=== PATIENT | female | born 1995 | race Caucasian/White ===

== ENCOUNTER 2018-04-10 20:05 | Inpatient (IN) ==
[2018-04-10] MEDS ORDERED: *HR* HYDROmorphone (PF) 1 MG/ML SYRINGE IVP ONE ×2 (21:13→23:00)
--- NOTE | 2018-04-11 00:28 | General Surgery Consult Note ---
Date of Encounter: 04/11/18 Time of Encounter: 00:26 Assessment and Plan (1) Abdominal distension Current Visit: Yes Status: Acute 20F with significant dilated loops of small bowel, which look like high grade obstruction; concern for multiple TP vs internal hernia vs appendicitis; evaluation by hospitalist NG tube: ARTHURWS repeat CT in AM serial exams replete lytes possible OR in AM History of Present Illness Consult date: 04/11/18 Reason for consult: other (small bowel obstruction) History of present illness: 23F h/o IVDA, hep C, recent pyelonephritis who presents with 4-5 days of worsening abdominal distension and abdominal pain. Per the patient, the pain is localized to the Right side of abdomen with radiation to her back. She does report associated nausea and vomiting and decreased PO intake. No reports of fevers, chills. of note, she did engage in IVDA ~ [address] scan was obtained which demonstrated dilated loops of bowel consistent with a high grade obstruction. Concern for possible multiple transition points due to internal hernia. (CT scan was reviewed by me in combination with radiology) Past Med Surg Social Fam HX - Past Medical History Medical history: no medical history Psychiatric history: no psych history - Past Surgical History Surgical History: no surgical history - Social History Smoking Status: Current every day smoker Smokeless Tobacco Status: No Alcohol use: occasionally Drug use: cocaine, opiates, methamphetamine Medications and Allergies No Known Home Drugs 04/10/18 [History] 3 Allergy/AdvReac Type Severity Reaction Status Date / Time No Known Allergies Allergy Verified 04/10/18 21:15 Review of Systems All systems PM: 12 point ROS negative besides HPI findings General Surgery Exam Initial Vital Signs Temp Pulse Resp BP Pulse Ox 98.3 F 89 20 130/106 98 04/10/18 20:13 04/10/18 20:13 04/10/18 20:13 04/10/18 20:13 04/10/18 20:13 - General physical appearance no distress - Eyes pinpoint pupil, normal ocular movement - ENT normocephalic - Neck no lymphadectomy - Respiratory normal expansion, normal respiratory effort - Cardiovascular Cardiovascular exam: Present: RRR - Abdomen Abdomen general surgery: Present: soft, tender Abdominal Tenderness: Present: RUQ, RLQ - Integumentary Integumentary general surgery: Present: no abnormal pigmentation - Neurologic Present: CN 2-12 grossly intact - Musculoskeletal Present: normal posture - Psychiatric Psychiatric general surgery: Present: A&Ox3 Exam Initial Vital Signs Temp Pulse Resp BP Pulse Ox 98.3 F 89 20 130/106 98 04/10/18 20:13 04/10/18 20:13 04/10/18 20:13 04/10/18 20:13 04/10/18 20:13 Results - Labs All other labs normal. - Imaging CT scan - abdomen: report reviewed, image reviewed CT scan - pelvis: report reviewed, image reviewed Consult Discharge Plan - Plan Referrals: NONE,PCP [Primary Care Provider] - Jia Chase [Family Provider] -
[2018-04-11] MEDS ORDERED: *HR* Promethazine 25 MG/ML VIAL IVP PRN ×3 (03:06→19:09)
[2018-04-11] MEDS ORDERED: *HR* FentaNYL (PF) 100 MCG/2 ML VIAL IVP ONE ×2 (05:18→10:06)
[2018-04-11] MEDS ORDERED: *HR* FentaNYL (PF) 100 MCG/2 ML VIAL IVP PRN ×3 (05:30→17:35)
[2018-04-11] MEDS ORDERED: Naloxone 0.4 MG/ML INJ IVP PRN ×2 (05:30→19:09)
--- NOTE | 2018-04-11 05:41 | Internal Med History&Physical ---
Date of Encounter: 04/11/18 Time of Encounter: 05:00 Internal Medicine - H&P: HPI Chief complaint: abdominal pain Admitted From: Hospital to Hospital Transfer Plans for Post Hospital Care: Home History of present illness: Ms. Agrawal is a 23 year old female who presents to our ER in transfer from [facility] ER. There was concern that she had an acute surgical abdomen, specifically appendicitis versus small bowel obstruction versus both. [facility] ER contacted our surgeon, Dr. Bowen, who did a staff visit in the ER to see patient. Dr. Bowen assessed the patient and reviewed the CT films from [facility] with radiology. Dr. Bowen contacted me asking me to admit patient to our service with consultation to surgery. He is not convinced patient has appendicitis at this time or that she needs urgent surgery. Nonetheless, surgery will follow closely and determine if and when she needs surgery. Upon my assessment of the patient, she is lying in bed complaining of nausea and abdominal pain. She is crying and moaning in pain. However, it appears that her complaints of pain are out of portion to her exam. She does have an NG in place that is hooked up to low intermittent wall suction. I reviewed the note from Dr. Bowen and specifically questioned her about her history of drug use. She has known hepatitis C and history of IV drug use. She reports to me that she has not used drugs in several years. However, according to Dr. oBwen' note, she used IV drugs roughly 1 week ago. She is a poor historian and not very cooperative with history and/or exam. Other than complaints of abdominal pain and requests for pain medication, I could not elicit any further specific information from patient. Past Med Surg Social Fam HX - Past Medical History Attestation: Yes The following information was validated with the patient. Source: patient, other (Dr. Bowen' consultation) Medical history: no medical history, hepatitis (Hep C) Additional medical history: IVDA Psychiatric history: no psych history - Past Surgical History Surgical History: no surgical history - Social History Smoking Status: Current every day smoker Smokeless Tobacco Status: No Alcohol use: occasionally Drug use: cocaine, opiates, methamphetamine, IV Drug Use Activity Level: Independent ambulation Recent Out of Country Travel Within the Last 8 Weeks: No - Family History Mother History Unknown: Yes Father History Unknown: Yes Internal Medicine - H&P: Meds No Known Home Drugs 04/10/18 [History] 3 Allergy/AdvReac Type Severity Reaction Status Date / Time No Known Allergies Allergy Verified 04/10/18 21:15 ROS unobtainable: other (patient not cooperative with history and much of exam) - Constitutional Vitals: Temp Pulse Resp BP Pulse Ox 98.1 F 81 15 120/84 96 04/11/18 05:23 04/11/18 05:23 04/11/18 05:23 04/11/18 05:23 04/11/18 05:23 General appearance: Present: mild distress, A&O X 3. Absent: cooperative, pleasant, answers questions appropriately (non-cooperative) Exam: see below - Head Head exam: Present: atraumatic, normal inspection - Eye Eye exam: Present: EOMI, PERRL. Absent: scleral icterus Pupils: Present: normal accommodation - ENT ENT exam: Present: mucous membranes dry, normal exam, normal oropharynx Additional comments: NGT in place to LIWS - Neck Neck exam general surgery: Present: supple. Absent: tenderness, nuchal rigidity , thyromegaly - Respiratory Respiratory exam: Present: CTAB. Absent: chest wall tenderness, rales, rhonchi , wheezes - Cardiovascular Cardiovascular exam: Present: RRR, +S1, +S2. Absent: systolic murmur - GI/Abdominal GI/Abdominal exam: Present: guarding, hypoactive bowel sounds, tenderness ( diffuse). Absent: mass, rebound - Extremities Exam Extremities exam: Present: radial pulses palpable and symmetrical. Absent: calf tenderness, pedal edema, tenderness, warm - Neurological Exam Neurological exam: Present: alert, oriented X3, no focal deficits - Psychiatric Psychiatric exam: Present: agitated, anxious - Skin Skin exam: Present: dry, intact, warm - Assessment and plan (1) Abdominal distension Current Visit: Yes Status: Acute Assessment and plan: 1. I am unable to find transfer records from [facility]. 2. Much of history was obtained from my discussion with Dr. Bowen as patient was not very cooperative with history. 3. Will order CBC, CMP, blood cultures, U/A CL&S, test, and urine tox screen. 3. Will treat with IV Zosyn and Flagyl to cover GI castillo. 5. Surgery consultation with Dr. Bowen. Further/repeat imaging per Dr. Bowen. 6. NG to LIWS for concerns of SBO. 7. IVF hydration. 8. Will provide IV pain and nausea control. (2) IVDU (intravenous drug user) Current Visit: Yes Status: Chronic Assessment and plan: 1. I worry about possible bowel ischemia from cocaine use. 2. Will order urine drug screen. 3. IVF, antibiotics, and cautious use of above pain/nausea meds. (3) DVT prophylaxis Current Visit: Yes Status: Acute Assessment and plan: 1. EPCD'S.
[2018-04-11] MEDS: 0.9 % Sodium Chloride 1,000 ML IVC SCH ×2 (05:50→13:30)
[2018-04-11] MEDS: Piperacillin/Tazobactam 3.375 GM in 0.9 % Sodium Chloride Mini Bag 100 ML IVPB SCH ×2 (05:51→14:20)
[2018-04-11] MEDS: *HR* Promethazine 25 MG/ML VIAL IVP PRN ×2 (06:00→11:55)
[2018-04-11 06:14] LABS: Basophils % 0.3 %; Eosinophils % 0.1 %; Hematocrit 50.6 % (35.3-44.9); Hemoglobin 16.9 g/dL (11.5-15.4); Immature Granulocytes % 0.5 % (0-4); Lymphocytes # 2.3 K/mcL (0.6-4.6); Lymphocytes % 14.8 %; Mean Corpuscular HGB Conc 33.4 g/dL (31.6-35.5); Mean Corpuscular Hemoglobin 31.5 pg (28.0-33.3); Mean Corpuscular Volume 94.2 fL (83.0-100.0); Mean Platelet Volume 8.3 fL (9.4-12.4); Monocytes # 0.8 K/mcL (0.0-1.3); Monocytes % 5.3 %; Neutrophils # 12.4 K/mcL (1.6-8.9); Platelet Count 597 K/mcL (140-400); Red Blood Count 5.37 M/mcL (3.82-4.97); Red Cell Distribution Width 13.5 % (11.5-14.5)
[2018-04-11 06:31] LABS: Activated Partial Thrombo Time 33.6 Seconds (26.0-36.0)
[2018-04-11 06:33] LABS: Alanine Aminotransferase 10 Units/L (7-52); Albumin 4.5 g/dL (3.5-5.7); Albumin/Globulin Ratio 1.2 (1.1-2.2); Alkaline Phosphatase 81 Units/L (34-104); Aspartate Amino Transferase 12 Units/L (13-39); BUN/Creatinine Ratio 24 (6-26); Bilirubin,Total 0.4 mg/dL (0.3-1.0); Blood Urea Nitrogen 17 mg/dL (6-20); Calcium 9.9 mg/dL (8.6-10.3); Carbon Dioxide 24 mEq/L (23-29); Chloride 103 mEq/L (98-107); Globulin 3.9 g/dL (2.4-3.5); Glucose 143 mg/dL (70-105); Magnesium 2.3 mg/dL (1.6-2.6); Osmolality,Calculated 284 (280-300); Potassium 4.4 mEq/L (3.5-5.1); Sodium 135 mEq/L (136-145); Total Protein 8.4 g/dL (6.4-8.9); eGFR For Non-African Americans > 60 (> 60)
[2018-04-11] MEDS: MetroNIDAZOLE 500 MG/100 ML 500 MG/100 ML BAG IVPB SCH ×2 (08:16→16:47)
[2018-04-11] MEDS ORDERED: Isovue-370 500 ML INFUS..BTL IV ONE (08:33)
[2018-04-11 10:07] LABS: Bilirubin,Urine Negative (Negative); Blood,Urine Negative (Negative); Clarity,Urine Clear (Clear); Color,Urine Yellow (Yellow); Glucose,Urine (UA) Normal (Normal); Ketones,Urine Negative (Negative); Leukocyte Esterase,Urine Negative (Negative); Nitrite,Urine Negative (Negative); PH,Urine 5.5 pH Units (5.0-8.0); Protein,Urine Trace mg/dL (Neg-Trace); Specific Gravity,Urine > 1.030 (1.010-1.025); Urobilinogen,Urine Normal (Normal)
[2018-04-11 10:10] LABS: Bacteria,Urine Few per hpf (None-Few); Hyaline Casts,Urine None Seen per lpf (None-Few); RBC,Urine 0-3 per hpf (0-3); Squamous Epithelial Cell,Urine Many per lpf (None-Few)
[2018-04-11 10:27] LABS: Amphetamine Screen,Urine Negative ng/mL (Cutoff=1000); Barbiturate Screen,Urine Negative ng/mL (Cutoff=200); Benzodiazepines Screen,Urine Negative ng/mL (Cutoff=200); Cannabinoid Screen,Urine Positive ng/mL (Cutoff = 50); Cocaine Screen,Urine Negative ng/mL (Cutoff= 300); Opiate Screen,Urine Positive ng/mL (Cutoff=300); Phencyclidine Screen,Urine Negative ng/mL (Cutoff=25)
--- NOTE | 2018-04-11 11:16 | Internal Med Progress Note ---
Hospitalist Progress Note - Encounter Date of Encounter: 04/11/18 Time of Encounter: 11:00 - Subjective Interval History: Patient with moderate distress, complaining of abdominal pain. Agrees to go to CT scan abdomen, initially she refused. - Exam Vitals: Temp Pulse Resp BP Pulse Ox 98.2 F 76 14 125/82 98 04/11/18 10:49 04/11/18 10:49 04/11/18 10:49 04/11/18 10:49 04/11/18 10:49 Exam: Gen: moderate distress, diaphoretic CVS: RRR Lungs: CTAB Abd: soft, mild distension, normal bowel sounds, no rigidity Ext: no edema. - Assessment and Plan (1) Abdominal distension Current Visit: Yes Status: Acute Assessment and Plan: Agrees to undergoe CT abdomen/pelvis, will follow-up Surgery following, recommendations appreciated. Continue Zosyn/Flagyl NG tube in (2) IVDU (intravenous drug user) Current Visit: Yes Status: Chronic (3) DVT prophylaxis Current Visit: Yes Status: Acute Assessment and Plan: EPCDs - Time Spent with Patient Total time spent is greater than 50% in coordination of care (as documented) at patient's floor/unit and/or counseling patient: Internal Medicine: Result - Labs CBC & Chem 7: 04/11/18 06:00 04/11/18 06:00 Labs: Short CBC 04/11/18 Range/Units 06:00 WBC 15.7 H (4.3-11.1) K/mcL Hgb 16.9 H (11.5-15.4) g/dL Hct 50.6 H (35.3-44.9) % Plt Count 597 H (140-400) K/mcL Neutrophils # 12.4 H (1.6-8.9) K/mcL BMP 04/11/18 06:00 Sodium 135 L Potassium 4.4 Chloride 103 Carbon Dioxide 24 BUN 17 Creatinine 0.71 Glucose 143 H Calcium 9.9 Liver Function 04/11/18 Range/Units 06:00 Total Bilirubin 0.4 (0.3-1.0) mg/dL AST 12 L (13-39) Units/L ALT 10 (7-52) Units/L Alkaline Phosphatase 81 (34-104) Units/L Albumin 4.5 (3.5-5.7) g/dL Urine 04/11/18 Range/Units 09:53 Urine Color Yellow (Yellow) Urine Clarity Clear (Clear) Urine pH 5.5 (5.0-8.0) pH Units Ur Specific [place] > 1.030 H (1.010-1.025) Urine Protein Trace (Neg-Trace) mg/dL Urine Glucose (UA) Normal (Normal) mg/dL - ABG Interpretation ABG results: PT/INR, D-dimer PT 11.0 Seconds (9.4-12.1) 04/11/18 06:00 Consult Discharge Plan - Plan Referrals: NONE,PCP [Primary Care Provider] - Jia Chase [Family Provider] -
[2018-04-11] MEDS ORDERED: Chloraseptic Spray 177 ML BOTTLE MM PRN ×2 (13:16→19:09)
--- NOTE | 2018-04-11 13:24 | Event Note ---
Date of Encounter: 04/11/18 Time of Encounter: 13:15 CT scan of the abdomen/pelvis reviewed with Dr. Bowen and and decision has been made to proceed to the operating room for an exploratory laparotomy. The risks, benefits, alternatives and expected outcomes have been reviewed with the patient and her sister. They are in agreement to proceed to the operating room with Dr. Bowen.
[2018-04-11] MEDS ORDERED: Ondansetron 4 MG/2 ML VIAL IVP PRN ×2 (14:29→19:09)
[2018-04-11] MEDS ORDERED: *HR* OxyCODONE Oral Soln 5 MG/5 ML UD.LIQ PO ONE (14:54)
[2018-04-11] MEDS ORDERED: *HR* FentaNYL (PF) 100 MCG/2 ML VIAL ONE ×3 (16:12→17:33)
[2018-04-11] MEDS ORDERED: *HR* Midazolam HCl 2 MG/2 ML VIAL ONE (16:12)
[2018-04-11] MEDS ORDERED: *HR* Propofol 200 MG/20 ML VIAL IVP ONE (16:12)
--- NOTE | 2018-04-11 16:12 | Anesthesia Evaluation PreOp ---
Date of Encounter: 04/11/18 Time of Encounter: 16:10 - Past History Planned Operation: EXP LAPAROTOMY Cardiac History: Denies any Significant Hx Pulmonary History: Smoker Other Medical History: Hepatic (HEP C), Other (POLY-DRUG ABUSE, HIGH GRADE SBO) Anesthesia History: No Prior Anesthetic Complications, Past Anesthesia Alcohol Use: occasionally Drug use: cocaine, opiates, methamphetamine, IV Drug Use Medications and Allergies No Known Home Drugs 04/10/18 [History] 3 Allergy/AdvReac Type Severity Reaction Status Date / Time No Known Allergies Allergy Verified 04/10/18 21:15 - Meds/Allergy Pre-op Review Medications Reviewed: Yes Allergies Reviewed: Yes Beta Blockers on Current Med List: No Anesthesia Results - Labs 04/11/18 06:00 04/11/18 06:00 Laboratory Last Values WBC 15.7 K/mcL (4.3-11.1) H 04/11/18 06:00 RBC 5.37 M/mcL (3.82-4.97) H 04/11/18 06:00 Hgb 16.9 g/dL (11.5-15.4) H 04/11/18 06:00 Hct 50.6 % (35.3-44.9) H 04/11/18 06:00 MCV 94.2 fL (83.0-100.0) 04/11/18 06:00 MCH 31.5 pg (28.0-33.3) 04/11/18 06:00 MCHC 33.4 g/dL (31.6-35.5) 04/11/18 06:00 RDW 13.5 % (11.5-14.5) 04/11/18 06:00 Plt Count 597 K/mcL (140-400) H 04/11/18 06:00 MPV 8.3 fL (9.4-12.4) L 04/11/18 06:00 Immature Gran % 0.5 % (0-4) 04/11/18 06:00 Seg Neutrophils % 79.0 % 04/11/18 06:00 Lymphocytes % 14.8 % 04/11/18 06:00 Monocytes % 5.3 % 04/11/18 06:00 Eosinophils % 0.1 % 04/11/18 06:00 Basophils % 0.3 % 04/11/18 06:00 Neutrophils # 12.4 K/mcL (1.6-8.9) H 04/11/18 06:00 Lymphocytes # 2.3 K/mcL (0.6-4.6) 04/11/18 06:00 Monocytes # 0.8 K/mcL (0.0-1.3) 04/11/18 06:00 Eosinophils # 0.0 K/mcL (0.0-0.6) 04/11/18 06:00 Basophils # 0.0 K/mcL (0.0-0.2) 04/11/18 06:00 PT 11.0 Seconds (9.4-12.1) 04/11/18 06:00 INR 1.0 04/11/18 06:00 APTT 33.6 Seconds (26.0-36.0) 04/11/18 06:00 Sodium 135 mEq/L (136-145) L 04/11/18 06:00 Potassium 4.4 mEq/L (3.5-5.1) 04/11/18 06:00 Chloride 103 mEq/L (98-107) 04/11/18 06:00 Carbon Dioxide 24 mEq/L (23-29) 04/11/18 06:00 BUN 17 mg/dL (6-20) 04/11/18 06:00 Creatinine 0.71 mg/dL (0.60-1.20) 04/11/18 06:00 Est GFR ( Amer) > 60 (> 60) 04/11/18 06:00 Est GFR (Non-Af Amer) > 60 (> 60) 04/11/18 06:00 BUN/Creatinine Ratio 24 (6-26) 04/11/18 06:00 Glucose 143 mg/dL (70-105) H 04/11/18 06:00 POC Glucose 132 mg/dL (70-99) H 04/11/18 05:19 Calculated Osmolality 284 (280-300) 04/11/18 06:00 Calcium 9.9 mg/dL (8.6-10.3) 04/11/18 06:00 Magnesium 2.3 mg/dL (1.6-2.6) 04/11/18 06:00 Total Bilirubin 0.4 mg/dL (0.3-1.0) 04/11/18 06:00 AST 12 Units/L (13-39) L 04/11/18 06:00 ALT 10 Units/L (7-52) 04/11/18 06:00 Alkaline Phosphatase 81 Units/L (34-104) 04/11/18 06:00 Serum Total Protein 8.4 g/dL (6.4-8.9) 04/11/18 06:00 Albumin 4.5 g/dL (3.5-5.7) 04/11/18 06:00 Globulin 3.9 g/dL (2.4-3.5) H 04/11/18 06:00 Albumin/Globulin Ratio 1.2 (1.1-2.2) 04/11/18 06:00 Serum , Qual Negative (Negative) 04/11/18 06:00 Urine Color Yellow (Yellow) 04/11/18 09:53 Urine Clarity Clear (Clear) 04/11/18 09:53 Urine pH 5.5 pH Units (5.0-8.0) 04/11/18 09:53 Ur Specific [place] > 1.030 (1.010-1.025) H 04/11/18 09:53 Urine Protein Trace mg/dL (Neg-Trace) 04/11/18 09:53 Urine Glucose (UA) Normal mg/dL (Normal) 04/11/18 09:53 Urine Ketones Negative mg/dL (Negative) 04/11/18 09:53 Urine Blood Negative (Negative) 04/11/18 09:53 Urine Nitrite Negative (Negative) 04/11/18 09:53 Urine Bilirubin Negative (Negative) 04/11/18 09:53 Urine Urobilinogen Normal mg/dL (Normal) 04/11/18 09:53 Ur Leukocyte Esterase Negative (Negative) 04/11/18 09:53 Urine Microscopic RBC 0-3 per hpf (0-3) 04/11/18 09:53 Urine Microscopic WBC 3-5 per hpf (0-3) H 04/11/18 09:53 Ur Squamous Epith Cells Many per lpf (None-Few) H 04/11/18 09:53 Urine Bacteria Few per hpf (None-Few) 04/11/18 09:53 Hyaline Casts None Seen per lpf (None-Few) 04/11/18 09:53 Urine Opiates Screen Positive ng/mL (Meuzob=920) H 04/11/18 09:53 Ur Barbiturates Screen Negative ng/mL (Umnkhc=717) 04/11/18 09:53 Ur Phencyclidine Scrn Negative ng/mL (Cutoff=25) 04/11/18 09:53 Ur Amphetamines Screen Negative ng/mL (Toragl=8575) 04/11/18 09:53 U Benzodiazepines Scrn Negative ng/mL (Saqdhc=540) 04/11/18 09:53 Urine Cocaine Screen Negative ng/mL (Cutoff= 300) 04/11/18 09:53 U Marijuana (THC) Screen Positive ng/mL (Cutoff = 50) H 04/11/18 09:53 Ur Drug Screen Interp See Below 04/11/18 09:53 Anesthesia Exam Vital Signs/O2 Sat/Glucose, Most Recent Temp Pulse Resp BP Pulse Ox 98.4 F 76 14 132/95 100 04/11/18 15:11 04/11/18 15:11 04/11/18 15:11 04/11/18 15:11 04/11/18 15:11 Blood Glucose* 119 Height: 1.57 M Weight: 58 KG NPO (# of Hours): 8 - HEENT Pupil (Motor): Pupils equal Mallampati: I Teeth: Normal Oral Opening: Greater than 3 - Cardiac Rhythm: Regular - Pulmonary Breath Sounds: bilateral Clear Respiratory Effort: Symmetrical - Additional Findings NGT in place Anesthesia Assess/Plan ASA Score: 4, E Modified Didier Scale for Level of Consciousness: Anixous, agitated or restless Anesthetic Plan: General Monitoring Plan: Standard Monitors, CVC (possible) Recovery Plan: PACU Anes Supervising Prov Stmt: Patient informed and consented. Risks, benefits, and alternatives discussed. Patient wishes to proceed.
[2018-04-11] MEDS ORDERED: *HR* Rocuronium Bromide 50 MG/5 ML VIAL ONE (16:14)
[2018-04-11] MEDS ORDERED: Ondansetron 4 MG/2 ML VIAL ONE (17:56)
[2018-04-11] MEDS ORDERED: Dexamethasone 4 MG/ML VIAL ONE (17:56)
[2018-04-11] MEDS ORDERED: Lidocaine -MPF 2% 5 ML VIAL ONE (18:07)
[2018-04-11] MEDS ORDERED: *HR* HYDROmorphone (PF) 1 MG/ML SYRINGE IVP PRN (18:08)
[2018-04-11] MEDS ORDERED: Bupivacaine/Clonidine Syringe 1 EACH SYRINGE ONE (18:08)
[2018-04-11] MEDS ORDERED: *HR* HYDROmorphone (PF) 1 MG/ML SYRINGE ONE (18:16)
--- NOTE | 2018-04-11 18:24 | Operative Note ---
Date of procedure: 04/11/18 Pre-op diagnosis: small bowel obstruction Post-op diagnosis: same Procedure: exploratory laparotomy lysis of adhesions appendectomy Implants: none Complications: none Anesthesia: HERBERT Surgeon: Christopher Bowen Was there an mechanic's assistant present: No Dba Other: Natali Law Estimated blood loss (cc): 25 Specimen: small bowel adhesive tissue, appendectomy Disposition: PACU Procedure in Detail: Patient was brought into the operating room suite. Placed in the supine position. Mechanical DVT prophylaxis was placed. The patient underwent smooth induction of anesthesia. Preoperative antibiotics were given. The patient was prepped and draped in the usual fashion. A time out was held identifying correct patient, pathology, procedure, and physician. I started by creating a midline incision. I dissected through subcutaneous tissue down to the fascia using electrocautery. I used the metzenbaum scissors to enter into the peritoneum. Upon entry I was able to suction serous fluid from the abdominal cavity. I then started from the ligament of treitz and ran the entirety of the small bowel and large bowel. Throughout the entirety of the small bowel there were soft flimsy adhesions causing multiple transition points either between loops of bowel or between the mesentery and the small bowel. I used both blunt dissection as well as sharp dissection with the metzenbaum scissors and electrocautery. I ran the bowel a total of three times to ensure that I lysed all adhesions. I then performed an appendectomy. I created a mesenteric window and inserted the stapler to come across the base of the appendix. i then used the vascular load stapler to come across the mesoappendix. There was a small bleeding vessel which was controlled with electrocautery. I then put all the bowel back into the abdomen. I then closed the fascia with a looped PDS suture in a running fashion. I used the 3-0 vicryl suture for the deep dermal layer and staplers for the skin. The patient tolerated the procedure well and was escorted to PACU in stable condition.
--- NOTE | 2018-04-11 18:34 | Anesthesia Procedures ---
Date of Encounter: 04/11/18 Time of Encounter: 18:32 Procedures: Anesthesia - Nerve Block Procedure Date: 04/11/18 Pre-op Diagnosis: SBO Surgical Procedure: EXP LAP, LYSIS ADHESIONS Checklist: Correct Patient Identifier, Correct procedure, History checked Monitor Applied: EKG, BP, Pulse Oximetry Supplemental Oxygen via Nasal Cannula (L/min): 3 Indication: Post Op Analgesia Block Type: Other (BILATERAL TAP) Ultrasound used: Yes Anatomy identified: Yes Visual spread of Local: Yes Smooth Injection of Local: Yes Prep: Chlorhexadine Needle: 22 x 50 mm Stimuplex Local: 0.25% Bupivicaine w/Clonidine 20 mcg/cc (45 ML ) Complications: None/effective block Anes Supervising Prov Stmt: PROCEDURE PERFORMED IN PACU ASEPTIC TECH INCR ASP AND INJ
--- NOTE | 2018-04-11 18:35 | Anesthesia Evaluation Post Op ---
Date of Encounter: 04/11/18 Time of Encounter: 18:45 - Discharge PostOp Status: Transfer Patient to floor (Patient's vital signs have been reviewed. Patient is stable postoperatively and has adequately recovered from anesthesia. Patient is determined to have stable airway patency and respiratory function including respiratory rate and oxygen saturation. Patient has a stable heart rate, blood pressure and adequate hydration. Patients mental status is acceptable. Patients temperature is appropriate. Pain and nausea are adequately controlled.)
[2018-04-11] MEDS ORDERED: 0.9 % Sodium Chloride 1,000 ML IVC SCH (19:09)
[2018-04-11] MEDS: *HR* HYDROmorphone 20 MG/20 ML PCA IVC PRN (20:36)
[2018-04-11] MEDS: *HR* Heparin 5,000 UNIT/ML VIAL SQ SCH (21:31)
[2018-04-12] MEDS ORDERED: 0.9 % Sodium Chloride 1,000 ML IVC SCH (02:15)
[2018-04-12 04:10] LABS: Basophils % 0.1 %; Hematocrit 42.7 % (35.3-44.9); Immature Granulocytes % 0.3 % (0-4); Lymphocytes # 1.5 K/mcL (0.6-4.6); Lymphocytes % 12.5 %; Mean Corpuscular Hemoglobin 32.5 pg (28.0-33.3); Mean Corpuscular Volume 95.7 fL (83.0-100.0); Mean Platelet Volume 8.4 fL (9.4-12.4); Monocytes % 8.1 %; Neutrophils # 9.4 K/mcL (1.6-8.9); Platelet Count 510 K/mcL (140-400); Red Blood Count 4.46 M/mcL (3.82-4.97); Red Cell Distribution Width 13.2 % (11.5-14.5)
[2018-04-12 04:12] LABS: Hemoglobin 14.5 g/dL (11.5-15.4)
[2018-04-12 04:26] LABS: BUN/Creatinine Ratio 19 (6-26); Blood Urea Nitrogen 13 mg/dL (6-20); Calcium 8.5 mg/dL (8.6-10.3); Carbon Dioxide 25 mEq/L (23-29); Chloride 105 mEq/L (98-107); Glucose 141 mg/dL (70-105); Osmolality,Calculated 284 (280-300); Potassium 4.4 mEq/L (3.5-5.1); Sodium 136 mEq/L (136-145); eGFR For Non-African Americans > 60 (> 60)
[2018-04-12] MEDS: *HR* Heparin 5,000 UNIT/ML VIAL SQ SCH ×3 (05:28→20:39)
--- NOTE | 2018-04-12 11:06 | Internal Med Progress Note ---
<Syd Rivera R - Last Filed: 04/12/18 12:55> Hospitalist Progress Note - Encounter Date of Encounter: 04/12/18 Time of Encounter: 11:04 - Subjective Interval History: Patient in moderate distress. Still having some abdominal pain, but it is now different than before surgery yesterday. Previously she would get very sharp intermittent pains, but now says it is more diffuse and not as severe. Still reporting some nausea, but denies any vomiting with the NG tube in place. No flatus or BM yet. Denies other symptoms. Denies fevers, chills, chest pain, dyspnea, or dysuria. - Exam Vitals: Temp Pulse Resp BP Pulse Ox 97.4 F L 89 14 125/62 98 04/12/18 06:52 04/12/18 06:52 04/12/18 06:52 04/12/18 06:52 04/12/18 08:37 Exam: GEN: Moderate distress, A&O3 HEAD: Atraumatic, normocephalic EYES: Pupils symmetric, sclera white, conjunctiva pink HEART: RRR, normal S1 and S2, no murmurs LUNGS: Clear to auscultation bilaterally, no wheezes, rhonchi, or crackles ABD: Soft, diffuse tenderness, non-distended, bowel sounds present, bandage is clean/dry/intact EXT: No edema noted, pulses 2/4 NEURO: No focal deficits, cooperative with exam - Assessment and Plan (1) Small bowel obstruction Current Visit: Yes Status: Acute Assessment and Plan: POD #1 s/p ex lap with LINNEA and appendectomy CT showed dilated bowel loops Patient afebrile. Leukocytosis is decreasing BCx NGTD Surgery following, appreciate recommendations - antibiotics were discontinued per surgery - NG tube: 250 ml out today - pt continues to report nausea Dilaudid LIME MIXER TENDER - will continue for today and attempt to deescalate her pain regimen tomorrow (2) IVDU (intravenous drug user) Current Visit: Yes Status: Chronic (3) DVT prophylaxis Current Visit: Yes Status: Acute Assessment and Plan: EPCDs - Summary of Assessment and Plan Summary of Assessment and Plan: Continue pain control and reevaluate bowel function, NG tube, and symptoms daily - Time Spent with Patient Total time spent is greater than 50% in coordination of care (as documented) at patient's floor/unit and/or counseling patient: Internal Medicine: Result - Labs CBC & Chem 7: 04/12/18 03:48 04/12/18 03:48 Labs: Short CBC 04/12/18 Range/Units 03:48 WBC 11.9 H (4.3-11.1) K/mcL Hgb 14.5 D (11.5-15.4) g/dL Hct 42.7 (35.3-44.9) % Plt Count 510 H (140-400) K/mcL Neutrophils # 9.4 H (1.6-8.9) K/mcL BMP 04/12/18 03:48 Sodium 136 Potassium 4.4 Chloride 105 Carbon Dioxide 25 BUN 13 Creatinine 0.70 Glucose 141 H Calcium 8.5 L - ABG Interpretation ABG results: PT/INR, D-dimer PT 11.0 Seconds (9.4-12.1) 04/11/18 06:00 - Impressions Impressions Abdomen/Pelvis CT 04/11/18 11:00 IMPRESSION: 1. Small-bowel obstruction with transition point in the mid abdomen. Some oral contrast is seen distal to the transition point. 2. Ascites. D/ / Josh Carr MD / Josh Carr MD Interpreting Provider: Josh Carr MD - VTE Documentation of Mechanical Device: Intermittent pneumatic compression device Consult Discharge Plan - Plan Referrals: NONE,PCP [Primary Care Provider] - Jia Chase [Family Provider] - <Chelita Russell - Last Filed: 04/12/18 14:47> Hospitalist Progress Note - Encounter Date of Encounter: 04/12/18 - Exam Vitals: Temp Pulse Resp BP Pulse Ox 98.5 F 91 18 114/74 95 04/12/18 11:45 04/12/18 11:45 04/12/18 11:45 04/12/18 11:45 04/12/18 11:45 - Assessment and Plan (1) Abdominal distension Current Visit: Yes Status: Acute (2) IVDU (intravenous drug user) Current Visit: Yes Status: Chronic (3) DVT prophylaxis Current Visit: Yes Status: Acute - Time Spent with Patient Total time spent is greater than 50% in coordination of care (as documented) at patient's floor/unit and/or counseling patient: Internal Medicine: Result - Labs CBC & Chem 7: 04/12/18 03:48 04/12/18 03:48 Labs: Short CBC 04/12/18 Range/Units 03:48 WBC 11.9 H (4.3-11.1) K/mcL Hgb 14.5 D (11.5-15.4) g/dL Hct 42.7 (35.3-44.9) % Plt Count 510 H (140-400) K/mcL Neutrophils # 9.4 H (1.6-8.9) K/mcL BMP 04/12/18 03:48 Sodium 136 Potassium 4.4 Chloride 105 Carbon Dioxide 25 BUN 13 Creatinine 0.70 Glucose 141 H Calcium 8.5 L - ABG Interpretation ABG results: PT/INR, D-dimer PT 11.0 Seconds (9.4-12.1) 04/11/18 06:00 - Attending Attestation I examined this patient and my medical decision-making was reviewed with the Resident Physician Dr. Rivera. I agree with the documented findings, disposition and treatment plan as described except to the extent set forth below. Ms. Agrawal is a 23 year old female who presents to our ER in transfer from [facility] ER. There was concern that she had an acute surgical abdomen, specifically appendicitis versus small bowel obstruction versus both. Pt was admitted in the hospital and started on empirical abx, had exploratory laparotomy, lysis of adhesions ,appendectomy on 04/11/18. No flatus yet. NG tube + Gen: A, A< O x 3 Chest: CTA Abd: Soft, moderate tenderness @ surgical incision area, BS+ hypoactive a/p 1. Acute appendicitis s/p exploratory laparotomy, lysis of adhesions and appendectomy POD #1 d/c Dilaudid LIME MIXER TENDER cont IV fentanyl PRN cont NG tube suction Surgery on board 2. h/o drug abuse no signs of withdrawal cont close monitoring Ativan PRN Since pt need to stay in the hospital more than 2 nights and with her complex medical problem, requiring IV pain medication will switch to full admission today. I did reviewed Dr. Davis H & P including HPI, PMH, PSH, FH,SH and ROS no changes noticed
--- NOTE | 2018-04-12 14:20 | General Surgery Progress Note ---
Date of Encounter: 04/12/18 Time of Encounter: 14:17 - Assessment and Plan (1) Small bowel obstruction Current Visit: Yes Status: Acute Cont NG/iv fluids for now. Pt will need to ambulate. Subjective Patient reports: pain is less Objective Vital Signs - Last 8 Hours Temp Pulse Resp BP Pulse Ox 04/12/18 11:45 98.5 F 91 18 114/74 95 04/12/18 08:37 98 04/12/18 06:52 97.4 F L 89 14 125/62 98 Intake and Output 04/11/18 04/12/18 04/12/18 23:59 07:59 15:59 Intake Total 100 / 100 1000 / 1000 520 / 520 Output Total 175 / 175 200 / 200 0 / 0 Balance -75 / -75 800 / 800 520 / 520 Intake: IV Fluids 100 / 100 1000 / 1000 520 / 520 0.9 % Sodium Chloride 1,000 ML 1000 / 1000 520 / 520 @ 100 mls/hr IVC .Q10H DEE Rx#: [id number] Zosyn 3.375 GM In 0.9 % Sodium 100 / 100 Chloride (Mini-Bag +) 100 ML @ 25 mls/hr IVPB Q8H DEE Rx#: [id number] Oral 0 / 0 0 / 0 0 / 0 Output: Urine 150 / 150 200 / 200 Gastric Tube Lavage Amount 0 / 0 0 / 0 Right Nare 0 / 0 0 / 0 Estimated Blood Loss 25 / 25 Gastric Drainage 0 / 0 0 / 0 Right Nare 0 / 0 0 / 0 Other: Meal NPO DINNER NPO Lunch Weight 62.7 kg Blood Glucose* 115 96 Patient Weight 04/12/18 23:59 Weight 62.7 kg - General physical appearance well nourished - Eyes PERRL - Neck Neck exam: trachea midline - Respiratory normal expansion - Cardiovascular Cardiovascular exam: Present: RRR - Abdomen Abdomen: Present: soft, tender - Incision Incision: Present: clean and dry - Integumentary no abnormal pigmentation - Neurologic CN 2-12 grossly intact - Psychiatric speech is normal - Labs 04/12/18 03:48 04/12/18 03:48 Diabetes panel 04/12/18 Range/Units 03:48 Sodium 136 (136-145) mEq/L Potassium 4.4 (3.5-5.1) mEq/L Chloride 105 (98-107) mEq/L Carbon Dioxide 25 (23-29) mEq/L BUN 13 (6-20) mg/dL Creatinine 0.70 (0.60-1.20) mg/dL Glucose 141 H (70-105) mg/dL Calcium 8.5 L (8.6-10.3) mg/dL Calcium panel 04/12/18 Range/Units 03:48 Calcium 8.5 L (8.6-10.3) mg/dL Pituitary panel 04/12/18 Range/Units 03:48 Sodium 136 (136-145) mEq/L Potassium 4.4 (3.5-5.1) mEq/L Chloride 105 (98-107) mEq/L Carbon Dioxide 25 (23-29) mEq/L BUN 13 (6-20) mg/dL Creatinine 0.70 (0.60-1.20) mg/dL Glucose 141 H (70-105) mg/dL Calcium 8.5 L (8.6-10.3) mg/dL Adrenal panel 04/12/18 Range/Units 03:48 Sodium 136 (136-145) mEq/L Potassium 4.4 (3.5-5.1) mEq/L Chloride 105 (98-107) mEq/L Carbon Dioxide 25 (23-29) mEq/L BUN 13 (6-20) mg/dL Creatinine 0.70 (0.60-1.20) mg/dL Glucose 141 H (70-105) mg/dL Calcium 8.5 L (8.6-10.3) mg/dL - VTE Documentation of Mechanical Device: Intermittent pneumatic compression device Consult Discharge Plan - Plan Referrals: NONE,PCP [Primary Care Provider] - Jia Chase [Family Provider] -
[2018-04-12] MEDS ORDERED: Ketorolac 30 MG/ML VIAL IVP ONE (15:35)
[2018-04-12] MEDS: *HR* HYDROmorphone 20 MG/20 ML PCA IVC PRN ×2 (15:36)
[2018-04-12] MEDS: 0.9 % Sodium Chloride 1,000 ML IVC SCH (15:51)
[2018-04-12] MEDS: *HR* LORazepam 2 MG/ML VIAL IVP PRN ×2 (15:53→23:43)
[2018-04-12] MEDS ORDERED: *HR* FentaNYL (PF) 100 MCG/2 ML VIAL IVP PRN (17:21)
[2018-04-12] MEDS: Acetaminophen IV 1,000 MG/100 ML INFUS..BTL IVPB SCH ×2 (17:21→23:43)
[2018-04-12] MEDS: Ketorolac 15 MG/ML VIAL IVP SCH ×2 (17:21→23:43)
[2018-04-13] MEDS ORDERED: *HR* LORazepam 2 MG/ML VIAL IVP ONE ×2 (00:37→18:39)
[2018-04-13] MEDS: 0.9 % Sodium Chloride 1,000 ML IVC SCH ×2 (01:05→11:41)
[2018-04-13] MEDS: Ketorolac 15 MG/ML VIAL IVP SCH ×3 (05:23→17:35)
[2018-04-13] MEDS: Acetaminophen IV 1,000 MG/100 ML INFUS..BTL IVPB SCH ×4 (05:23→23:46)
[2018-04-13 07:29] LABS: Basophils % 0.4 %; Eosinophils # 0.1 K/mcL (0.0-0.6); Eosinophils % 1.6 %; Hematocrit 33.3 % (35.3-44.9); Immature Granulocytes % 0.3 % (0-4); Lymphocytes # 2.7 K/mcL (0.6-4.6); Lymphocytes % 36.2 %; Mean Corpuscular Hemoglobin 31.8 pg (28.0-33.3); Mean Corpuscular Volume 96.2 fL (83.0-100.0); Mean Platelet Volume 8.5 fL (9.4-12.4); Monocytes # 0.7 K/mcL (0.0-1.3); Monocytes % 9.1 %; Neutrophils # 3.9 K/mcL (1.6-8.9); Platelet Count 334 K/mcL (140-400); Red Blood Count 3.46 M/mcL (3.82-4.97); Red Cell Distribution Width 13.1 % (11.5-14.5); Segmented Neutrophils % 52.4 %
[2018-04-13] MEDS: *HR* Heparin 5,000 UNIT/ML VIAL SQ SCH ×2 (07:35→21:27)
[2018-04-13] MEDS: *HR* LORazepam 2 MG/ML VIAL IVP PRN ×3 (07:39→23:53)
[2018-04-13 07:54] LABS: BUN/Creatinine Ratio 18 (6-26); Blood Urea Nitrogen 10 mg/dL (6-20); Calcium 8.3 mg/dL (8.6-10.3); Carbon Dioxide 26 mEq/L (23-29); Chloride 106 mEq/L (98-107); Glucose 81 mg/dL (70-105); Osmolality,Calculated 286 (280-300); Potassium 3.4 mEq/L (3.5-5.1); Sodium 139 mEq/L (136-145); eGFR For Non-African Americans > 60 (> 60)
[2018-04-13] MEDS ORDERED: Potassium Chloride 40 MEQ, Lidocaine 1% 2 ML in D5% in Water 500 ML IVPB ONE (09:22)
--- NOTE | 2018-04-13 09:37 | Internal Med Progress Note ---
<Syd Rivera R - Last Filed: 04/13/18 11:44> Hospitalist Progress Note - Encounter Date of Encounter: 04/13/18 Time of Encounter: 09:35 - Subjective Interval History: Patient in moderate distress. Still having some abdominal pain and reports that she feels the medicine isn't strong enough. Still reporting some nausea, but denies any vomiting with the NG tube in place. No flatus or BM yet. Reporting some increased anxiety and frustration that she is not improving sooner. Denies other symptoms. Denies fevers, chills, chest pain, dyspnea, or dysuria. She has not been up out of bed and ambulating yet. - Exam Vitals: Temp Pulse Resp BP Pulse Ox 98.6 F 81 15 109/69 97 04/13/18 08:47 04/13/18 08:47 04/13/18 08:47 04/13/18 08:47 04/13/18 08:47 Exam: GEN: Mild distress, A&O3 HEAD: Atraumatic, normocephalic EYES: Pupils symmetric, sclera white, conjunctiva pink HEART: RRR, normal S1 and S2, no murmurs LUNGS: Clear to auscultation bilaterally, no wheezes, rhonchi, or crackles ABD: Soft, diffuse tenderness, non-distended, hypoactive bowel sounds, bandage is clean/dry/intact EXT: No edema noted, pulses 2/4 NEURO: No focal deficits, cooperative with exam - Assessment and Plan (1) Small bowel obstruction Current Visit: Yes Status: Acute Assessment and Plan: POD #2 s/p ex lap with LINNEA and appendectomy Patient afebrile. Leukocytosis resolved Mild anemia - suspect some related to dilution BCx NGTD Surgery following, appreciate recommendations - antibiotics were discontinued per surgery - NG tube: 1000 ml out today - increasing - NG tube appears long - check KUB for placement - Dilaudid TANKER SERVICEMAN per surgery Encourage ambulation Pt reporting anxiety and frustration with slow process of healing - will avoid benzos with the amount of pain medication that she is currently taking (2) IVDU (intravenous drug user) Current Visit: Yes Status: Chronic (3) Hypokalemia Current Visit: Yes Status: Acute Assessment and Plan: Replace K and monitor Also check Mag and Phos with pt NPO DVT Prophylaxis: Subq heparin - Summary of Assessment and Plan Summary of Assessment and Plan: Continue pain control and reevaluate bowel function, NG tube, and symptoms daily - Time Spent with Patient Total time spent is greater than 50% in coordination of care (as documented) at patient's floor/unit and/or counseling patient: Internal Medicine: Result - Labs CBC & Chem 7: 04/13/18 06:43 04/13/18 06:43 Labs: Short CBC 04/13/18 Range/Units 06:43 WBC 7.4 (4.3-11.1) K/mcL Hgb 11.0 L D (11.5-15.4) g/dL Hct 33.3 L (35.3-44.9) % Plt Count 334 (140-400) K/mcL Neutrophils # 3.9 (1.6-8.9) K/mcL BMP 04/13/18 06:43 Sodium 139 Potassium 3.4 L Chloride 106 Carbon Dioxide 26 BUN 10 Creatinine 0.57 L Glucose 81 Calcium 8.3 L - ABG Interpretation ABG results: PT/INR, D-dimer PT 11.0 Seconds (9.4-12.1) 04/11/18 06:00 - VTE Documentation of Mechanical Device: Intermittent pneumatic compression device Consult Discharge Plan - Plan Referrals: NONE,PCP [Primary Care Provider] - Jia Chase [Family Provider] - <Chelita Russell - Last Filed: 04/13/18 12:51> Hospitalist Progress Note - Encounter Date of Encounter: 04/13/18 - Exam Vitals: Temp Pulse Resp BP Pulse Ox 97.3 F L 90 16 121/80 98 04/13/18 11:16 04/13/18 11:16 04/13/18 11:16 04/13/18 11:16 04/13/18 11:16 - Assessment and Plan (1) Abdominal distension Current Visit: Yes Status: Acute (2) IVDU (intravenous drug user) Current Visit: Yes Status: Chronic (3) DVT prophylaxis Current Visit: Yes Status: Acute - Time Spent with Patient Total time spent is greater than 50% in coordination of care (as documented) at patient's floor/unit and/or counseling patient: Internal Medicine: Result - Labs CBC & Chem 7: 04/13/18 06:43 04/13/18 06:43 Labs: Short CBC 04/13/18 Range/Units 06:43 WBC 7.4 (4.3-11.1) K/mcL Hgb 11.0 L D (11.5-15.4) g/dL Hct 33.3 L (35.3-44.9) % Plt Count 334 (140-400) K/mcL Neutrophils # 3.9 (1.6-8.9) K/mcL BMP 04/13/18 06:43 Sodium 139 Potassium 3.4 L Chloride 106 Carbon Dioxide 26 BUN 10 Creatinine 0.57 L Glucose 81 Calcium 8.3 L - ABG Interpretation ABG results: PT/INR, D-dimer PT 11.0 Seconds (9.4-12.1) 04/11/18 06:00 - Impressions Impressions KUB X-Ray 04/13/18 09:37 IMPRESSION: Enteric tube placement as above. D/ / Sveta Russ Cha, MD / Sveta Russ Cha, MD Interpreting Provider: Sveta Russ Cha, MD - Attending Attestation I examined this patient and my medical decision-making was reviewed with the Resident Physician Dr. Rivera. I agree with the documented findings, disposition and treatment plan as described except to the extent set forth below. Ms. Agrawal is a 23 year old female who presents to our ER in transfer from [facility] ER. There was concern that she had an acute surgical abdomen, specifically appendicitis versus small bowel obstruction versus both. Pt was admitted in the hospital and started on empirical abx, had exploratory laparotomy, lysis of adhesions ,appendectomy on 04/11/18. No flatus yet. NG tube + Gen: A, A<,O x 3 Chest: CTA Abd: Soft, moderate tenderness @ surgical incision area, BS+ hypoactive a/p 1. Acute appendicitis s/p exploratory laparotomy, lysis of adhesions and appendectomy POD # 2 pain management as per surgery cont NG tube suction Surgery on board 2. h/o drug abuse no signs of withdrawal cont close monitoring Ativan PRN
--- NOTE | 2018-04-13 14:00 | General Surgery Progress Note ---
Date of Encounter: 04/13/18 Time of Encounter: 13:58 - Assessment and Plan (1) Small bowel obstruction Current Visit: Yes Status: Acute Cont NG/iv fluids for now. Pt will need to ambulate. Will add ativan 1.5mg IV q 6 hours for her severe anxiety. Subjective Patient reports: other (23 yo female with severe anxiety. She is cursing the nurses and staff. ) Objective Vital Signs - Last 8 Hours Temp Pulse Resp BP Pulse Ox 04/13/18 11:16 97.3 F L 90 16 121/80 98 04/13/18 08:47 98.6 F 81 15 109/69 97 Intake and Output 04/12/18 04/13/18 04/13/18 23:59 07:59 15:59 Intake Total 100 / 100 1850 / 1850 450 / 450 Output Total 750 / 750 1650 / 1650 950 / 950 Balance -650 / -650 200 / 200 -500 / -500 Intake: IV Fluids 100 / 100 1850 / 1850 450 / 450 0.9 % Sodium Chloride 1,000 ML 1650 / 1650 350 / 350 @ 100 mls/hr IVC .Q10H DEE Rx#: [id number] Ofirmev 1,000 mg/100 ml 1,000 100 / 100 200 / 200 100 / 100 mg In 100 ml @ 400 mls/hr IVPB Q6HR DEE Rx#:[id number] Oral 0 / 0 0 / 0 0 / 0 Output: Urine 300 / 300 650 / 650 550 / 550 Gastric Drainage 450 / 450 1000 / 1000 400 / 400 Other: Meal NPO Dinner NPO Blood Glucose* 92 77 81 - Eyes PERRL, normal ocular movement - ENT normal pinna, normal nares - Respiratory normal expansion - Cardiovascular Cardiovascular exam: Present: RRR - Abdomen Abdomen: Present: bowel sounds present - Neurologic CN 2-12 grossly intact, normal sensation - Labs 04/13/18 06:43 04/13/18 06:43 Diabetes panel 04/13/18 Range/Units 06:43 Sodium 139 (136-145) mEq/L Potassium 3.4 L (3.5-5.1) mEq/L Chloride 106 (98-107) mEq/L Carbon Dioxide 26 (23-29) mEq/L BUN 10 (6-20) mg/dL Creatinine 0.57 L (0.60-1.20) mg/dL Glucose 81 (70-105) mg/dL Calcium 8.3 L (8.6-10.3) mg/dL Calcium panel 04/13/18 Range/Units 06:43 Calcium 8.3 L (8.6-10.3) mg/dL Pituitary panel 04/13/18 Range/Units 06:43 Sodium 139 (136-145) mEq/L Potassium 3.4 L (3.5-5.1) mEq/L Chloride 106 (98-107) mEq/L Carbon Dioxide 26 (23-29) mEq/L BUN 10 (6-20) mg/dL Creatinine 0.57 L (0.60-1.20) mg/dL Glucose 81 (70-105) mg/dL Calcium 8.3 L (8.6-10.3) mg/dL Adrenal panel 04/13/18 Range/Units 06:43 Sodium 139 (136-145) mEq/L Potassium 3.4 L (3.5-5.1) mEq/L Chloride 106 (98-107) mEq/L Carbon Dioxide 26 (23-29) mEq/L BUN 10 (6-20) mg/dL Creatinine 0.57 L (0.60-1.20) mg/dL Glucose 81 (70-105) mg/dL Calcium 8.3 L (8.6-10.3) mg/dL - VTE Documentation of Mechanical Device: Intermittent pneumatic compression device Consult Discharge Plan - Plan Referrals: NONE,PCP [Primary Care Provider] - Jia Chase [Family Provider] -
[2018-04-13] MEDS ORDERED: *HR* LORazepam 2 MG/ML VIAL IVP STA (14:02)
[2018-04-13] MEDS: *HR* HYDROmorphone 20 MG/20 ML PCA IVC PRN (21:11)
[2018-04-13] MEDS: Ketorolac 15 MG/ML VIAL IM SCH (23:47)
[2018-04-14 04:56] LABS: Basophils % 0.4 %; Eosinophils # 0.3 K/mcL (0.0-0.6); Eosinophils % 3.5 %; Hematocrit 34.7 % (35.3-44.9); Hemoglobin 11.3 g/dL (11.5-15.4); Immature Granulocytes % 0.4 % (0-4); Lymphocytes # 2.3 K/mcL (0.6-4.6); Lymphocytes % 28.6 %; Mean Corpuscular HGB Conc 32.6 g/dL (31.6-35.5); Mean Corpuscular Hemoglobin 31.9 pg (28.0-33.3); Monocytes # 0.7 K/mcL (0.0-1.3); Monocytes % 8.9 %; Neutrophils # 4.7 K/mcL (1.6-8.9); Platelet Count 456 K/mcL (140-400); Red Blood Count 3.54 M/mcL (3.82-4.97); Red Cell Distribution Width 12.7 % (11.5-14.5); Segmented Neutrophils % 58.2 %
[2018-04-14 05:20] LABS: BUN/Creatinine Ratio 16 (6-26); Blood Urea Nitrogen 7 mg/dL (6-20); Calcium 8.7 mg/dL (8.6-10.3); Carbon Dioxide 24 mEq/L (23-29); Chloride 103 mEq/L (98-107); Glucose 70 mg/dL (70-105); Osmolality,Calculated 276 (280-300); Potassium 3.7 mEq/L (3.5-5.1); Sodium 135 mEq/L (136-145); eGFR For Non-African Americans > 60 (> 60)
[2018-04-14] MEDS: Acetaminophen IV 1,000 MG/100 ML INFUS..BTL IVPB SCH ×4 (05:59→23:36)
[2018-04-14 06:00] LABS: Magnesium 1.9 mg/dL (1.6-2.6); Phosphorous 3.1 mg/dL (2.7-4.5)
[2018-04-14] MEDS: Ketorolac 15 MG/ML VIAL IM SCH ×2 (06:03→12:33)
[2018-04-14] MEDS: *HR* LORazepam 2 MG/ML VIAL IVP PRN ×3 (06:04→23:37)
[2018-04-14] MEDS: 0.9 % Sodium Chloride 1,000 ML IVC SCH ×2 (07:37→12:56)
[2018-04-14] MEDS: *HR* Heparin 5,000 UNIT/ML VIAL SQ SCH ×2 (08:20→23:38)
--- NOTE | 2018-04-14 10:10 | General Surgery Progress Note ---
Date of Encounter: 04/14/18 Time of Encounter: 10:07 - Assessment and Plan (1) Small bowel obstruction Current Visit: Yes Status: Acute POD #3 midline laparotomy, appy, with LINNEA with Dr. Bowen 04/11/2018. Resolved leukocytosis IVF NG to suction Continue comfort and pain management Will decrease Ativan Will need to ambulate hallway TID with assistance NPO Subjective Narrative: Patient reports mild generalized abdominal pain, is improved from initial presentation, made worse by movement and ambulation. She reports medication helps significantly with pain and anxiety. Denies flatus or bowel movement. Denies nausea or vomiting. States she is not ambulating much. Objective Vital Signs - Last 8 Hours Temp Pulse Resp BP Pulse Ox 04/14/18 07:19 98.1 F 82 14 131/79 96 04/14/18 04:46 97.6 F 75 16 120/79 99 Intake and Output 04/13/18 04/14/18 04/14/18 23:59 07:59 15:59 Intake Total 425 / 425 200 / 200 Output Total 400 / 400 1650 / 1650 350 / 350 Balance 25 / 25 -1450 / -1450 -350 / -350 Intake: IV Fluids 425 / 425 200 / 200 0.9 % Sodium Chloride 1,000 ML 325 / 325 @ 100 mls/hr IVC .Q10H DEE Rx#: [id number] Ofirmev 1,000 mg/100 ml 1,000 100 / 100 200 / 200 mg In 100 ml @ 400 mls/hr IVPB Q6HR DEE Rx#:[id number] Oral 0 / 0 0 / 0 Output: Urine 0 / 0 250 / 250 350 / 350 Gastric Drainage 400 / 400 1400 / 1400 Other: Meal NPO Dinner NPO BREAKFAST Weight 62.5 kg Blood Glucose* 66 76 Patient Weight 04/14/18 23:59 Weight 62.5 kg - General physical appearance moderate distress (Patient became anxious this afternoon, see nurse and event note for detailed account.), other (Somnolent, falling asleep and unable to stay awake during encounter. Does appear mildly distressed about NG tube.) - Eyes PERRL - ENT Other (NG tube in place) - Respiratory normal respiratory effort, clear to auscultation - Cardiovascular Cardiovascular exam: Present: RRR - Abdomen Abdomen: Present: soft, tender (Postsurgical tenderness) Additional Comments: Minimal bowel sounds. No guarding. No rebound tenderness. - Incision Incision: Present: clean and dry, intact (Midline laparotomy, well approximated , surgical noe intact.) - Neurologic CN 2-12 grossly intact - Psychiatric oriented to time, oriented to person, oriented to place - Labs 04/14/18 04:29 04/14/18 04:29 Diabetes panel 04/14/18 Range/Units 04:29 Sodium 135 L (136-145) mEq/L Potassium 3.7 (3.5-5.1) mEq/L Chloride 103 (98-107) mEq/L Carbon Dioxide 24 (23-29) mEq/L BUN 7 (6-20) mg/dL Creatinine 0.45 L (0.60-1.20) mg/dL Glucose 70 (70-105) mg/dL Calcium 8.7 (8.6-10.3) mg/dL Calcium panel 04/14/18 04/14/18 Range/Units 04:29 04:29 Calcium 8.7 (8.6-10.3) mg/dL Phosphorus 3.1 (2.7-4.5) mg/dL Pituitary panel 04/14/18 Range/Units 04:29 Sodium 135 L (136-145) mEq/L Potassium 3.7 (3.5-5.1) mEq/L Chloride 103 (98-107) mEq/L Carbon Dioxide 24 (23-29) mEq/L BUN 7 (6-20) mg/dL Creatinine 0.45 L (0.60-1.20) mg/dL Glucose 70 (70-105) mg/dL Calcium 8.7 (8.6-10.3) mg/dL Adrenal panel 04/14/18 Range/Units 04:29 Sodium 135 L (136-145) mEq/L Potassium 3.7 (3.5-5.1) mEq/L Chloride 103 (98-107) mEq/L Carbon Dioxide 24 (23-29) mEq/L BUN 7 (6-20) mg/dL Creatinine 0.45 L (0.60-1.20) mg/dL Glucose 70 (70-105) mg/dL Calcium 8.7 (8.6-10.3) mg/dL - VTE Documentation of Mechanical Device: Intermittent pneumatic compression device Consult Discharge Plan - Plan Referrals: NONE,PCP [Primary Care Provider] - Jia Chase [Family Provider] -
--- NOTE | 2018-04-14 10:11 | Internal Med Progress Note ---
Hospitalist Progress Note - Encounter Date of Encounter: 04/14/18 Time of Encounter: 09:25 - Subjective Interval History: Sherwin Agrawal is a 23 yo F with a PMHx of anxiety, IVDU, substance abuse of methamphetamine, cocaine and opiates. Pt presented to the ED c/o abd pain and had been admitted for a SBO and appendectomy. Pt had an uncomplicated laproscopic appendectomy with lysis of adhesions on 04/11/18. Pt has a NG tube in place. She states that she has been feeling anxious with having to stay in the bed all of the time but currently denies any abd pain, N/V, fever or any other sx at this time. Pt states that she has not had any food in 4 days and has not had a BM in that time as well, but notes that she has been belching a lot since last night and denies any flatus. - Exam Vitals: Temp Pulse Resp BP Pulse Ox 98.1 F 82 14 131/79 96 04/14/18 07:19 04/14/18 07:19 04/14/18 07:19 04/14/18 07:19 04/14/18 07:19 Exam: GEN: NAD, A&O3, Somnolent ENT: NG tube in place with nl gastric secretions, no scleral icterus, slightly dry mucus membranes HEART: RRR, normal S1 and S2, LUNGS: CTA bilat in all [place], no wheezes, rhonchi, or crackles ABD: Soft, non-tender, non-distended, hypoactive bowel sounds, bandage is clean/ dry/intact - Assessment and Plan (1) IVDU (intravenous drug user) Current Visit: Yes Status: Chronic (2) Small bowel obstruction Current Visit: Yes Status: Acute Assessment and Plan: NG hooked up to intermittent suction, will continue. Pt was evaluated by surgery and recommended continued NPO until bowel function returns. - Time Spent with Patient Total time spent is greater than 50% in coordination of care (as documented) at patient's floor/unit and/or counseling patient: Plan of Care Discussed with: patient Internal Medicine: Result - Labs CBC & Chem 7: 04/14/18 04:29 04/14/18 04:29 Labs: Short CBC 04/14/18 Range/Units 04:29 WBC 8.1 (4.3-11.1) K/mcL Hgb 11.3 L (11.5-15.4) g/dL Hct 34.7 L (35.3-44.9) % Plt Count 456 H (140-400) K/mcL Neutrophils # 4.7 (1.6-8.9) K/mcL BMP 04/14/18 04:29 Sodium 135 L Potassium 3.7 Chloride 103 Carbon Dioxide 24 BUN 7 Creatinine 0.45 L Glucose 70 Calcium 8.7 - ABG Interpretation ABG results: PT/INR, D-dimer PT 11.0 Seconds (9.4-12.1) 04/11/18 06:00 - Impressions Impressions KUB X-Ray 04/13/18 09:37 IMPRESSION: Enteric tube placement as above. D/ / Sveta Russ Cha, MD / Sveta Russ Cha, MD Interpreting Provider: Sveta Russ Cha, MD - VTE Documentation of Mechanical Device: Intermittent pneumatic compression device Consult Discharge Plan - Plan Referrals: NONE,PCP [Primary Care Provider] - Jia Chase [Family Provider] -
[2018-04-14] MEDS ORDERED: HydrOXYzine 100 MG/2 ML VIAL IM ONE (12:29)
--- NOTE | 2018-04-14 12:38 | Event Note ---
Date of Encounter: 04/14/18 Time of Encounter: 12:26 Called to patient room in collaboration with supercharge repair supervisor and resident physician regarding patient is unhappy with care, states she is anxious, hungry, and was not aware of the clinical plan. This SECOND BAKER did review the patient's clinical course, surgical procedure, and current expected findings of postoperative ileus. Also reviewed the delicate balance of discomfort management, anxiety management, and the need to prevent over sedation. As noted, pt was unable to remain awake during Dr. Urbina's assessment this am, is without bowel sounds, and without flatus. She remains with >1L NG output daily. Patient was observed by this SECOND BAKER walking in halls aprox 0800 this am. We reviewed the findings mentioned and patient states she was unable to remain awake d/t, "that was because it was freaking 6am." I did remind patient that Dr. Urbina's assessment occurred at 10:00 am today and she was unable to remain awake during the assessment, that although it may feel as though we are not doing much right now, surgery is providing supportive care while awaiting the return of bowel function. I also reviewed with patient that she is NPO while awaiting return of bowel function, and would need to remain so until return of bowel function occurred. We further reviewed that pain control and anxiety medications would not be increased d/t risk of over sedation, (it MUST be noted that during this portion of the conversation, the patient was unable to remain awake and required repetition of her name to arous) but surgery was willing to provide non-benzo anxiety relieve such as IM Vistaril, to which the patient responded, "whatever I am so tired of talking about it, like thank you." She proceeds to text on her cellular device. The meeting ended.
[2018-04-14] MEDS ORDERED: *HR* LORazepam 2 MG/ML VIAL IVP PRN (14:00)
[2018-04-14] MEDS: D5% in 0.45% NACL 1,000 ML IVC SCH ×2 (15:11→23:56)
--- NOTE | 2018-04-14 15:27 | Internal Med Progress Note ---
<Rafia Hernandez - Last Filed: 04/14/18 15:24> Hospitalist Progress Note - Encounter Date of Encounter: 04/14/18 Time of Encounter: 15:24 - Subjective Interval History: Sherwin Agrawal is a 23 yo F with a PMHx of anxiety, IVDU, substance abuse of methamphetamine, cocaine and opiates. Pt presented to the ED c/o abd pain and had been admitted for a SBO and appendectomy. Pt had an uncomplicated laproscopic appendectomy with lysis of adhesions on 04/11/18. Pt has a NG tube in place. She states that she has been feeling anxious with having to stay in the bed all of the time but currently denies any abd pain, N/V, fever or any other sx at this time. Pt states that she has not had any food in 4 days and has not had a BM in that time as well, but notes that she has been belching a lot since last night and denies any flatus. - Exam Vitals: Temp Pulse Resp BP Pulse Ox 98.4 F 74 14 108/69 100 04/14/18 14:41 04/14/18 14:41 04/14/18 14:41 04/14/18 14:41 04/14/18 14:41 Exam: GEN: NAD, A&O3, Somnolent ENT: NG tube in place with nl gastric secretions, no scleral icterus, slightly dry mucus membranes HEART: RRR, normal S1 and S2 LUNGS: CTA bilat in all seymour, no wheezes, rhonchi, or crackles ABD: tender diffusely, soft, non-distended, hypoactive bowel sounds, bandage is clean/dry/intact NEURO: strength 5/5 in all extremities PSYCH: answering questions appropriately - Assessment and Plan (1) Small bowel obstruction Current Visit: Yes Status: Acute Assessment and Plan: POD#3 S/P EX LAP WITH APPENDECTOMY. NG output 1800ml yesterday. No BM still. Plan: -NG hooked up to intermittent suction, will continue - surgery following, recommended continued NPO until bowel function returns - Pain: Dilaudid DIRECTOR COLLEGE, Toradol, and Ofirmev - Nausea: Zofran and Penergan - switched MIVF from NS to D5 1/2NS at 100ml/hr due to hypoglycemia (2) Anxiety Current Visit: Yes Status: Acute Assessment and Plan: Lorazepam 1.5mg IVP Q6H prn (3) IVDU (intravenous drug user) Current Visit: Yes Status: Chronic Assessment and Plan: Will need to have a safe plan for pain management going home. (4) DVT prophylaxis Current Visit: Yes Status: Acute Assessment and Plan: Heparin SQ (5) Hypokalemia Current Visit: Yes Status: Resolved Assessment and Plan: Resolved. Patient was hypokalemic, most likely due to NG suction. DVT Prophylaxis: Subq heparin - Time Spent with Patient Total time spent is greater than 50% in coordination of care (as documented) at patient's floor/unit and/or counseling patient: Internal Medicine: Result - Labs CBC & Chem 7: 04/14/18 04:29 04/14/18 04:29 Labs: Short CBC 04/14/18 Range/Units 04:29 WBC 8.1 (4.3-11.1) K/mcL Hgb 11.3 L (11.5-15.4) g/dL Hct 34.7 L (35.3-44.9) % Plt Count 456 H (140-400) K/mcL Neutrophils # 4.7 (1.6-8.9) K/mcL BMP 04/14/18 04:29 Sodium 135 L Potassium 3.7 Chloride 103 Carbon Dioxide 24 BUN 7 Creatinine 0.45 L Glucose 70 Calcium 8.7 - ABG Interpretation ABG results: PT/INR, D-dimer PT 11.0 Seconds (9.4-12.1) 04/11/18 06:00 - VTE Documentation of Mechanical Device: Intermittent pneumatic compression device Consult Discharge Plan - Plan Referrals: NONE,PCP [Primary Care Provider] - Jia Chase [Family Provider] - <Chelita Russell - Last Filed: 04/14/18 15:58> Hospitalist Progress Note - Encounter Date of Encounter: 04/14/18 - Exam Vitals: Temp Pulse Resp BP Pulse Ox 98.4 F 74 14 108/69 100 04/14/18 14:41 04/14/18 14:41 04/14/18 14:41 04/14/18 14:41 04/14/18 14:41 - Assessment and Plan (1) Abdominal distension Current Visit: Yes Status: Acute (2) IVDU (intravenous drug user) Current Visit: Yes Status: Chronic (3) DVT prophylaxis Current Visit: Yes Status: Acute - Time Spent with Patient Total time spent is greater than 50% in coordination of care (as documented) at patient's floor/unit and/or counseling patient: Internal Medicine: Result - Labs CBC & Chem 7: 04/14/18 04:29 04/14/18 04:29 Labs: Short CBC 04/14/18 Range/Units 04:29 WBC 8.1 (4.3-11.1) K/mcL Hgb 11.3 L (11.5-15.4) g/dL Hct 34.7 L (35.3-44.9) % Plt Count 456 H (140-400) K/mcL Neutrophils # 4.7 (1.6-8.9) K/mcL BMP 04/14/18 04:29 Sodium 135 L Potassium 3.7 Chloride 103 Carbon Dioxide 24 BUN 7 Creatinine 0.45 L Glucose 70 Calcium 8.7 - ABG Interpretation ABG results: PT/INR, D-dimer PT 11.0 Seconds (9.4-12.1) 04/11/18 06:00 - Attending Attestation I examined this patient and my medical decision-making was reviewed with the Resident Physician Dr. Hernandez. I agree with the documented findings, disposition and treatment plan as described except to the extent set forth below. Ms. Agrawal is a 23 year old female who presents to our ER in transfer from [facility] ER. There was concern that she had an acute surgical abdomen, specifically appendicitis versus small bowel obstruction versus both. Pt was admitted in the hospital and started on empirical abx, had exploratory laparotomy, lysis of adhesions ,appendectomy on 04/11/18. No flatus yet. NG tube + Gen: A, A,O x 3 Chest: CTA Abd: Soft, moderate tenderness @ surgical incision area, BS+ hypoactive a/p 1. Acute appendicitis s/p exploratory laparotomy, lysis of adhesions and appendectomy POD # 3 pain management as per surgery NG tube clamped today will talk to surgery about initiating ice chips for now 2. h/o drug abuse no signs of withdrawal cont close monitoring Ativan PRN 3. Hypoglycemia changed IVF to D5 NS
[2018-04-15] MEDS: *HR* HYDROmorphone 20 MG/20 ML PCA IVC PRN (02:57)
[2018-04-15] MEDS: *HR* LORazepam 2 MG/ML VIAL IVP PRN ×4 (06:52→23:44)
[2018-04-15 07:32] LABS: Basophils % 0.2 %; Eosinophils # 0.3 K/mcL (0.0-0.6); Eosinophils % 3.3 %; Hematocrit 36.4 % (35.3-44.9); Hemoglobin 12.3 g/dL (11.5-15.4); Immature Granulocytes % 0.1 % (0-4); Lymphocytes # 1.3 K/mcL (0.6-4.6); Lymphocytes % 15.6 %; Mean Corpuscular HGB Conc 33.8 g/dL (31.6-35.5); Mean Corpuscular Hemoglobin 31.5 pg (28.0-33.3); Mean Corpuscular Volume 93.3 fL (83.0-100.0); Mean Platelet Volume 8.3 fL (9.4-12.4); Monocytes # 0.6 K/mcL (0.0-1.3); Monocytes % 6.9 %; Neutrophils # 6.1 K/mcL (1.6-8.9); Platelet Count 464 K/mcL (140-400); Red Cell Distribution Width 12.4 % (11.5-14.5); Segmented Neutrophils % 73.9 %
[2018-04-15 07:55] LABS: BUN/Creatinine Ratio 6 (6-26); Blood Urea Nitrogen 4 mg/dL (6-20); Calcium 8.9 mg/dL (8.6-10.3); Carbon Dioxide 28 mEq/L (23-29); Chloride 99 mEq/L (98-107); Glucose 103 mg/dL (70-105); Osmolality,Calculated 279 (280-300); Potassium 3.1 mEq/L (3.5-5.1); Sodium 136 mEq/L (136-145); eGFR For Non-African Americans > 60 (> 60)
[2018-04-15] MEDS: Acetaminophen IV 1,000 MG/100 ML INFUS..BTL IVPB SCH ×4 (07:59→23:22)
--- NOTE | 2018-04-15 08:27 | General Surgery Progress Note ---
Date of Encounter: 04/15/18 Time of Encounter: 08:27 - Assessment and Plan (1) Small bowel obstruction Current Visit: Yes Status: Acute Date of procedure: 04/11/18 Pre-op diagnosis: small bowel obstruction Post-op diagnosis: same Procedure: 1) exploratory laparotomy, 2) lysis of adhesions, 3) appendectomy Implants: none Complications: none Anesthesia: HERBERT Surgeon: Christopher Bowen POD #4 as above. Awaiting return of bowel function, AAS is indeterminate with lack of SB gas noted. Her NG was in the distal duodenum which explains her output. The NG was retracted aprox 12 cm and with immediate return of gas noted. Given her unremarkable AAS, we did clamp her NG today, may return to suction f she has nausea or vomiting. Pain control remains difficult given her drug abuse history and use of pain meds/anxiotlytics to the point of sedation. Anxiolytics management per primary service. we will begin weaning CYTOMETRY TECHNOLOGIST. Her incisions area grossly unremarkable and exam as otherwise expected. Plan: -supportive care and discomfort management while awaiting return of bowel function -decrease CYTOMETRY TECHNOLOGIST basal dosing by 50%. Will stop CYTOMETRY TECHNOLOGIST later today if she tolerates NG being clamped -add scheduled Toradol Q6 hours for 2 days. Continue scheduled Ofirmev for 2 additional days. -ice chips -hardtack candy okay -ambulate in halls at least TID -out of bed to chair at least TID -GI and DVT prophylaxis (2) DVT prophylaxis Current Visit: Yes Status: Acute EPCDs Heparin gtt (3) IVDU (intravenous drug user) Current Visit: Yes Status: Chronic See above (4) Hypokalemia Current Visit: Yes Status: Acute Replete Lytes as indicated Subjective Patient reports: no new complaints, still having pain, voiding w/o difficulty, no flatus, no bowel movement, afebrile Narrative: Really reports that she "is not feel any better." She is unable to elaborate or describe what does not feel improved. She denies nausea, vomiting, worsening abdominal discomfort, fever, chills, flatus, or bowel movement. Objective Vital Signs - Last 8 Hours Temp Pulse Resp BP Pulse Ox 04/15/18 08:08 98.9 F 93 14 134/88 100 04/15/18 05:25 99.2 F 81 14 119/85 99 04/15/18 01:00 99.7 F H 77 14 118/77 99 Intake and Output 04/14/18 04/15/18 04/15/18 23:59 07:59 15:59 Intake Total 1100 / 1100 100 / 100 0 / 0 Output Total 1400 / 1400 450 / 450 0 / 0 Balance -300 / -300 -350 / -350 0 / 0 Intake: IV Fluids 1100 / 1100 100 / 100 D5% And 0.45% Nacl 1000 Ml Bag 1000 / 1000 1,000 ML @ 100 mls/hr IVC .Q10H DEE Rx#:[id number] Ofirmev 1,000 mg/100 ml 1,000 100 / 100 100 / 100 mg In 100 ml @ 400 mls/hr IVPB Q6HR DEE Rx#:[id number] Oral 0 / 0 0 / 0 0 / 0 Output: Urine 200 / 200 0 / 0 Gastric Tube Lavage Amount 700 / 700 Right Nare 700 / 700 Gastric Drainage 500 / 500 450 / 450 Right Nare 500 / 500 Other: Weight 63 kg Blood Glucose* 79 95 Patient Weight 04/15/18 23:59 Weight 63 kg - General physical appearance no distress, other (Difficulty keeping eyes open during conversation) - Eyes other (Am) - ENT normal nares (Left NG noted), normal mucosa - Neck Neck exam: trachea midline - Respiratory normal expansion, normal respiratory effort, clear to auscultation - Cardiovascular Cardiovascular exam: Present: RRR - Abdomen Abdomen: Present: bowel sounds present (Faint at best), soft, tender (Expected postoperative tenderness) Hernia: none - Incision Incision: Present: clean and dry, intact - Integumentary no growths - Neurologic normal sensation - Musculoskeletal normal posture - Psychiatric oriented to time, oriented to person, oriented to place, speech is normal - Labs 04/15/18 07:03 04/15/18 07:03 Diabetes panel 04/15/18 Range/Units 07:03 Sodium 136 (136-145) mEq/L Potassium 3.1 L (3.5-5.1) mEq/L Chloride 99 (98-107) mEq/L Carbon Dioxide 28 (23-29) mEq/L BUN 4 L (6-20) mg/dL Creatinine 0.64 (0.60-1.20) mg/dL Glucose 103 (70-105) mg/dL Calcium 8.9 (8.6-10.3) mg/dL Calcium panel 04/15/18 Range/Units 07:03 Calcium 8.9 (8.6-10.3) mg/dL Pituitary panel 04/15/18 Range/Units 07:03 Sodium 136 (136-145) mEq/L Potassium 3.1 L (3.5-5.1) mEq/L Chloride 99 (98-107) mEq/L Carbon Dioxide 28 (23-29) mEq/L BUN 4 L (6-20) mg/dL Creatinine 0.64 (0.60-1.20) mg/dL Glucose 103 (70-105) mg/dL Calcium 8.9 (8.6-10.3) mg/dL Adrenal panel 04/15/18 Range/Units 07:03 Sodium 136 (136-145) mEq/L Potassium 3.1 L (3.5-5.1) mEq/L Chloride 99 (98-107) mEq/L Carbon Dioxide 28 (23-29) mEq/L BUN 4 L (6-20) mg/dL Creatinine 0.64 (0.60-1.20) mg/dL Glucose 103 (70-105) mg/dL Calcium 8.9 (8.6-10.3) mg/dL - VTE Documentation of Mechanical Device: Intermittent pneumatic compression device Consult Discharge Plan - Plan Referrals: NONE,PCP [Primary Care Provider] -
[2018-04-15] MEDS ORDERED: Ondansetron ODT 4 MG TAB.RAPDIS SL PRN (08:29)
[2018-04-15] MEDS ORDERED: Metoclopramide 10 MG/2 ML VIAL IVP ONE (08:30)
[2018-04-15] MEDS ORDERED: Potassium Chloride 20 MEQ, Lidocaine 1% 2 ML in D5% in Water 250 ML IVPB ONE (08:35)
[2018-04-15] MEDS ORDERED: *HR* HYDROmorphone 20 MG/20 ML PCA IVC PRN (08:35)
[2018-04-15] MEDS ORDERED: Potassium Chloride 40 MEQ, Lidocaine 1% 2 ML in D5% in Water 500 ML IVPB ONE (08:48)
--- NOTE | 2018-04-15 09:10 | Internal Med Progress Note ---
Hospitalist Progress Note - Encounter Date of Encounter: 04/16/18 Time of Encounter: 09:07 - Subjective Interval History: Sherwin Agrawal is a 23 yo F with a PMHx of anxiety, IVDU, substance abuse of methamphetamine, cocaine and opiates. Pt presented to the ED c/o abd pain and had been admitted for a SBO and appendectomy. Pt had an uncomplicated laproscopic appendectomy with lysis of adhesions on 04/11/18. Pt has a NG tube in place. POD#4: This morning, patient denies flatus or nausea. She has diffuse abdominal pain. - Exam Vitals: Temp Pulse Resp BP Pulse Ox 98.9 F 93 14 134/88 100 04/15/18 08:08 04/15/18 08:08 04/15/18 08:08 04/15/18 08:08 04/15/18 08:08 Exam: GEN: awake but sleepy ENT: NG tube in place with nl gastric secretions, no scleral icterus, slightly dry mucus membranes HEART: RRR, normal S1 and S2 LUNGS: CTAB in all seymour, no wheezes, rhonchi, or crackleof infectios ABD: tender diffusely, vertical midline incision with noe no signs of infection, soft, non-distended, hypoactive bowel sounds, bandage is clean/dry/ intact NEURO: strength 5/5 in all extremities PSYCH: answering questions appropriately - Assessment and Plan (1) Small bowel obstruction Current Visit: Yes Status: Acute Assessment and Plan: POD#4 S/P EX LAP WITH APPENDECTOMY. NG output 2150ml yesterday. No BM still. Abd x-ray: Indeterminate bowel-gas pattern due to lack of small bowel gas.Enteric drainage tube terminates in the descending duodenum. Plan: -NG clamped - surgery following, ordered abd x-ray for placement of NG - continued NPO until bowel function returns - Pain: Dilaudid LAW ENFORCEMENT INSTRUCTOR, Toradol, and Ofirmev - Nausea: Zofran and Penergan - MIVF from NS to D5 1/2NS at 100ml/hr due to hypoglycemia (2) Anxiety Current Visit: Yes Status: Acute Assessment and Plan: Changed from Lorazepam 1.5mg IVP Q6H prn to 1mg Q4H prn. (3) IVDU (intravenous drug user) Current Visit: Yes Status: Chronic Assessment and Plan: Will need to have a safe plan for pain management going home. (4) Hypokalemia Current Visit: Yes Status: Acute Assessment and Plan: k= 3.1, replaced with KCl 40mcg IV. recheck in the AM. (5) DVT prophylaxis Current Visit: Yes Status: Acute Assessment and Plan: heparin SQ DVT Prophylaxis: Subq heparin - Time Spent with Patient Total time spent is greater than 50% in coordination of care (as documented) at patient's floor/unit and/or counseling patient: Plan of Care Discussed with: patient Internal Medicine: Result - Labs CBC & Chem 7: 04/15/18 07:03 04/15/18 07:03 Labs: Short CBC 04/15/18 Range/Units 07:03 WBC 8.3 (4.3-11.1) K/mcL Hgb 12.3 (11.5-15.4) g/dL Hct 36.4 (35.3-44.9) % Plt Count 464 H (140-400) K/mcL Neutrophils # 6.1 (1.6-8.9) K/mcL BMP 04/15/18 07:03 Sodium 136 Potassium 3.1 L Chloride 99 Carbon Dioxide 28 BUN 4 L Creatinine 0.64 Glucose 103 Calcium 8.9 - ABG Interpretation ABG results: PT/INR, D-dimer PT 11.0 Seconds (9.4-12.1) 04/11/18 06:00 - Impressions Impressions Abdomen X-Ray 04/15/18 06:58 IMPRESSION: Indeterminate bowel-gas pattern due to lack of small bowel gas. Enteric drainage tube terminates in the descending duodenum. D/ / Chad Cervantes MD / Chad Cervantes MD Interpreting Provider: Chad Cervantes MD - VTE Documentation of Mechanical Device: Intermittent pneumatic compression device Consult Discharge Plan - Plan Referrals: NONE,PCP [Primary Care Provider] -
[2018-04-15] MEDS: cefOXitin 2,000 MG in Water for inj. (sterile) 20 ML 20 ML IVP SCH ×2 (10:17→17:56)
[2018-04-15] MEDS: Doxycycline 100 MG in 0.9 % Sodium Chloride Mini Bag 100 ML IVPB SCH ×2 (10:26→21:13)
[2018-04-15] MEDS: *HR* Heparin 5,000 UNIT/ML VIAL SQ SCH ×3 (10:27→21:15)
[2018-04-15] MEDS ORDERED: Metoclopramide 10 MG/2 ML VIAL IVP SCH (12:00)
[2018-04-15] MEDS: D5% in 0.45% NACL 1,000 ML IVC SCH ×2 (12:18→23:26)
[2018-04-15] MEDS: Ketorolac 15 MG/ML VIAL IVP SCH ×3 (12:19→23:28)
[2018-04-15] MEDS ORDERED: OXYCODONE Oral CONC 10 MG/0.5 ML ORAL.SYG SL PRN (14:54)
--- NOTE | 2018-04-15 17:24 | Event Note ---
Date of Encounter: 04/15/18 Time of Encounter: 10:00 I have seen and examined this pt independently. I have discussed with resident physician Dr Hernandez regarding the management plan. Plz refer resident note for details.
[2018-04-15] MEDS: Nicotine 14 MG PATCH.TD24 TD SCH (17:48)
[2018-04-15] MEDS: Metoclopramide 10 MG/2 ML VIAL IVP SCH ×2 (17:57→23:29)
[2018-04-15] MEDS: OXYCODONE Oral CONC 10 MG/0.5 ML ORAL.SYG SL PRN (23:24)
[2018-04-16] MEDS: cefOXitin 2,000 MG in Water for inj. (sterile) 20 ML 20 ML IVP SCH ×3 (02:34→17:12)
[2018-04-16] MEDS: *HR* LORazepam 2 MG/ML VIAL IVP PRN ×4 (04:29→21:25)
[2018-04-16 04:58] LABS: Basophils % 0.3 %; Eosinophils # 0.2 K/mcL (0.0-0.6); Eosinophils % 2.2 %; Hematocrit 33.4 % (35.3-44.9); Hemoglobin 11.5 g/dL (11.5-15.4); Immature Granulocytes % 0.1 % (0-4); Lymphocytes # 1.8 K/mcL (0.6-4.6); Lymphocytes % 23.6 %; Mean Corpuscular HGB Conc 34.4 g/dL (31.6-35.5); Mean Corpuscular Hemoglobin 31.7 pg (28.0-33.3); Monocytes # 0.6 K/mcL (0.0-1.3); Monocytes % 8.2 %; Neutrophils # 5.1 K/mcL (1.6-8.9); Platelet Count 479 K/mcL (140-400); Red Blood Count 3.63 M/mcL (3.82-4.97); Red Cell Distribution Width 12.5 % (11.5-14.5); Segmented Neutrophils % 65.6 %
[2018-04-16 05:17] LABS: BUN/Creatinine Ratio 9 (6-26); Blood Urea Nitrogen 5 mg/dL (6-20); Calcium 8.8 mg/dL (8.6-10.3); Carbon Dioxide 23 mEq/L (23-29); Chloride 106 mEq/L (98-107); Glucose 133 mg/dL (70-105); Osmolality,Calculated 283 (280-300); Potassium 3.5 mEq/L (3.5-5.1); Sodium 137 mEq/L (136-145); eGFR For Non-African Americans > 60 (> 60)
[2018-04-16] MEDS: Ketorolac 15 MG/ML VIAL IVP SCH ×3 (05:46→17:10)
[2018-04-16] MEDS: Acetaminophen IV 1,000 MG/100 ML INFUS..BTL IVPB SCH (05:46)
[2018-04-16] MEDS: Metoclopramide 10 MG/2 ML VIAL IVP SCH ×3 (05:46→17:11)
[2018-04-16] MEDS: OXYCODONE Oral CONC 10 MG/0.5 ML ORAL.SYG SL PRN (05:57)
--- NOTE | 2018-04-16 10:10 | Internal Med Progress Note ---
<Andre Castro - Last Filed: 04/16/18 11:43> Hospitalist Progress Note - Encounter Date of Encounter: 04/16/18 Time of Encounter: 11:44 - Subjective Interval History: Sherwin Agrawal is a 23 yo F with a PMHx of anxiety, IVDU, substance abuse of methamphetamine, cocaine and opiates. Pt presented to the ED c/o abd pain and had been admitted for a SBO and appendectomy. Pt had an uncomplicated laproscopic appendectomy with lysis of adhesions on 04/11/18. Pt is resting comfortably this morning without any pain or complaints at this time. NG tube was discontinued yesterday. POD#5: This morning, patient denies flatus or nausea. She states that she is not having any abd pain, fever or any other symptoms this morning. - Exam Vitals: Temp Pulse Resp BP Pulse Ox 98.7 F 71 13 106/66 97 04/16/18 07:36 04/16/18 07:36 04/16/18 07:36 04/16/18 07:36 04/16/18 07:36 Exam: GEN: awake but sleepy ENT: moist mucus membranes, no scleral icterus HEART: RRR, normal S1 and S2 LUNGS: CTAB in all seymour, no wheezes, rhonchi, or crackles ABD: abd non-tender, soft, non-distended, no masses, hypoactive bowel sounds, incision closed with noe and incision is clean, dry and intact without signs of infection or dehiscence. NEURO: strength 5/5 in all extremities PSYCH: answering questions appropriately - Assessment and Plan (1) IVDU (intravenous drug user) Current Visit: Yes Status: Chronic (2) Small bowel obstruction Current Visit: Yes Status: Acute Assessment and Plan: POD#5 S/P EX LAP WITH APPENDECTOMY. NG output 450 ml yesterday prior to removal. No BM still, will continue to monitor. Plan: -NG clamped - surgery following, discontinued NG tube and started pt on Reglan. Surgery started pt on Doxycycline for presumed PID. - continued NPO until bowel function returns - Pain: Dilaudid PUBLIC RELATIONS INTERN has been discontinued, Toradol, and Ofirmev will continue - Nausea: Zofran and Penergan - MIVF from NS to D5 1/2NS at 100ml/hr due to hypoglycemia DVT Prophylaxis: Subq heparin - Time Spent with Patient Total time spent is greater than 50% in coordination of care (as documented) at patient's floor/unit and/or counseling patient: Plan of Care Discussed with: patient Internal Medicine: Result - Labs CBC & Chem 7: 04/16/18 04:40 04/16/18 04:40 Labs: Short CBC 04/16/18 Range/Units 04:40 WBC 7.8 (4.3-11.1) K/mcL Hgb 11.5 (11.5-15.4) g/dL Hct 33.4 L (35.3-44.9) % Plt Count 479 H (140-400) K/mcL Neutrophils # 5.1 (1.6-8.9) K/mcL BMP 04/16/18 04:40 Sodium 137 Potassium 3.5 Chloride 106 Carbon Dioxide 23 BUN 5 L Creatinine 0.53 L Glucose 133 H Calcium 8.8 - ABG Interpretation ABG results: PT/INR, D-dimer PT 11.0 Seconds (9.4-12.1) 04/11/18 06:00 - VTE Documentation of Mechanical Device: Intermittent pneumatic compression device Consult Discharge Plan - Plan Referrals: NONE,PCP [Primary Care Provider] - <Jairo Kessler - Last Filed: 04/16/18 12:43> Hospitalist Progress Note - Encounter Date of Encounter: 04/16/18 - Exam Vitals: Temp Pulse Resp BP Pulse Ox 98.1 F 75 13 126/69 98 04/16/18 12:13 04/16/18 12:13 04/16/18 12:13 04/16/18 12:13 04/16/18 12:13 - Assessment and Plan (1) Abdominal distension Current Visit: Yes Status: Acute (2) IVDU (intravenous drug user) Current Visit: Yes Status: Chronic (3) DVT prophylaxis Current Visit: Yes Status: Acute - Time Spent with Patient Total time spent is greater than 50% in coordination of care (as documented) at patient's floor/unit and/or counseling patient: Internal Medicine: Result - Labs CBC & Chem 7: 04/16/18 04:40 04/16/18 04:40 Labs: Short CBC 04/16/18 Range/Units 04:40 WBC 7.8 (4.3-11.1) K/mcL Hgb 11.5 (11.5-15.4) g/dL Hct 33.4 L (35.3-44.9) % Plt Count 479 H (140-400) K/mcL Neutrophils # 5.1 (1.6-8.9) K/mcL BMP 04/16/18 04:40 Sodium 137 Potassium 3.5 Chloride 106 Carbon Dioxide 23 BUN 5 L Creatinine 0.53 L Glucose 133 H Calcium 8.8 - ABG Interpretation ABG results: PT/INR, D-dimer PT 11.0 Seconds (9.4-12.1) 04/11/18 06:00 - Attending Attestation I have seen and examined this patient independently. I have discussed with medical student regarding the management plan. Agree with the documentation. Pt start to pass gas. NG tube removed. Full liquid diet started. Appreciate surgical consult and input.
[2018-04-16] MEDS: Doxycycline 100 MG in 0.9 % Sodium Chloride Mini Bag 100 ML IVPB SCH ×2 (10:24→21:25)
[2018-04-16] MEDS: D5% in 0.45% NACL 1,000 ML IVC SCH (10:27)
[2018-04-16] MEDS: *HR* Heparin 5,000 UNIT/ML VIAL SQ SCH ×2 (10:33→21:24)
[2018-04-16] MEDS: Nicotine 14 MG PATCH.TD24 TD SCH (10:33)
--- NOTE | 2018-04-16 10:33 | General Surgery Progress Note ---
<Andre Urbina R - Last Filed: 04/16/18 10:49> Date of Encounter: 04/16/18 Time of Encounter: 10:29 - Assessment and Plan (1) Small bowel obstruction Current Visit: Yes Status: Acute POD #5 midline laparotomy, appy, with LINNEA with Dr. Bowen 04/11/2018. Bowel function is improving, no issues with NG removed and clear diet. Plan: Advance diet to full liquids today Switch pain meds from SL to oral Continue supportive care and pain management Ambulate halls at least TID Out of bed to chair at least TID IV fluids Continue IV antibiotics with plan to transition to p.o. therapy Anxiolytic management per primary (2) DVT prophylaxis Current Visit: Yes Status: Acute EPCDs Heparin gtt Ambulation at least TID (3) Hypokalemia Current Visit: Yes Status: Acute Resolved, will follow (4) Anxiety Current Visit: Yes Status: Acute Managed as per primary team (5) IVDU (intravenous drug user) Current Visit: Yes Status: Chronic Will manage pain as above Subjective Narrative: Patient reports being very tired this morning, she was asleep when I entered the room. She states that she stayed up most of the night. She reports controlled pain at this time. Reports being mildly anxious, however is less so with the NG tube out. Patient has been eating clear liquid diet since last night. She states she is tolerating this without issue, feels that she could tolerate diet advancement. Denies nausea, vomiting, diarrhea, bloating. Denies recent bowel movements, is passing flatus. Is able to ambulate well. Objective Vital Signs - Last 8 Hours Temp Pulse Resp BP Pulse Ox 04/16/18 07:36 98.7 F 71 13 106/66 97 04/16/18 03:54 98.9 F 82 14 106/70 98 Intake and Output 04/15/18 04/16/18 04/16/18 23:59 07:59 15:59 Intake Total 1420 / 1420 840 / 840 1000 / 1000 Output Total 0 / 0 900 / 900 Balance 1420 / 1420 -60 / -60 1000 / 1000 Intake: IV Fluids 1420 / 1420 120 / 120 1000 / 1000 D5% And 0.45% Nacl 1000 Ml Bag 1000 / 1000 1000 / 1000 1,000 ML @ 100 mls/hr IVC .Q10H DEE Rx#:[id number] Mefoxin 2,000 MG In Water for 20 / 20 20 / 20 inj. (sterile) 20 ML @ 300 mls/ hr IVP Q8H DEE Rx#:[id number] Ofirmev 1,000 mg/100 ml 1,000 300 / 300 100 / 100 mg In 100 ml @ 400 mls/hr IVPB Q6HR DEE Rx#:[id number] Doxycycline 100 MG In 0.9 % 100 / 100 Sodium Chloride (Mini-Bag +) 100 ML @ 100 mls/hr IVPB Q12H DEE Rx#:[id number] Oral 0 / 0 720 / 720 Output: Urine 0 / 0 900 / 900 Other: # Voids 1 Weight 62.8 kg Blood Glucose* 176 Patient Weight 04/16/18 23:59 Weight 62.8 kg - General physical appearance well developed, no distress, no pain - Eyes PERRL, normal ocular movement - ENT atraumatic, normocephalic - Neck Neck exam: trachea midline - Respiratory normal respiratory effort, clear to auscultation - Cardiovascular Cardiovascular exam: Present: RRR - Abdomen Abdomen: Present: bowel sounds present, soft, tender (Mild postsurgical tenderness without guarding or rebound.) - Incision Incision: Present: clean and dry, intact (Midline laparotomy incision, without erythema or drainage. Surgical noe are present and intact.), approximated - Integumentary no rash - Neurologic CN 2-12 grossly intact - Psychiatric oriented to time, oriented to person, oriented to place, speech is normal - Labs 04/16/18 04:40 04/16/18 04:40 Diabetes panel 04/16/18 Range/Units 04:40 Sodium 137 (136-145) mEq/L Potassium 3.5 (3.5-5.1) mEq/L Chloride 106 (98-107) mEq/L Carbon Dioxide 23 (23-29) mEq/L BUN 5 L (6-20) mg/dL Creatinine 0.53 L (0.60-1.20) mg/dL Glucose 133 H (70-105) mg/dL Calcium 8.8 (8.6-10.3) mg/dL Calcium panel 04/16/18 Range/Units 04:40 Calcium 8.8 (8.6-10.3) mg/dL Pituitary panel 04/16/18 Range/Units 04:40 Sodium 137 (136-145) mEq/L Potassium 3.5 (3.5-5.1) mEq/L Chloride 106 (98-107) mEq/L Carbon Dioxide 23 (23-29) mEq/L BUN 5 L (6-20) mg/dL Creatinine 0.53 L (0.60-1.20) mg/dL Glucose 133 H (70-105) mg/dL Calcium 8.8 (8.6-10.3) mg/dL Adrenal panel 04/16/18 Range/Units 04:40 Sodium 137 (136-145) mEq/L Potassium 3.5 (3.5-5.1) mEq/L Chloride 106 (98-107) mEq/L Carbon Dioxide 23 (23-29) mEq/L BUN 5 L (6-20) mg/dL Creatinine 0.53 L (0.60-1.20) mg/dL Glucose 133 H (70-105) mg/dL Calcium 8.8 (8.6-10.3) mg/dL - VTE Documentation of Mechanical Device: Intermittent pneumatic compression device Consult Discharge Plan - Plan Referrals: NONE,PCP [Primary Care Provider] - <Kenroy Alcantara E - Last Filed: 04/16/18 13:41> Date of Encounter: 04/16/18 - Assessment and Plan (1) Small bowel obstruction Current Visit: Yes Status: Acute Cont diet. Pt will likely be ready for discharge in the am. Objective Vital Signs - Last 8 Hours Temp Pulse Resp BP Pulse Ox 04/16/18 12:13 98.1 F 75 13 126/69 98 04/16/18 08:15 97 04/16/18 07:36 98.7 F 71 13 106/66 97 Intake and Output 04/15/18 04/16/18 04/16/18 23:59 07:59 15:59 Intake Total 1420 / 1420 840 / 840 1000 / 1000 Output Total 0 / 0 900 / 900 800 / 800 Balance 1420 / 1420 -60 / -60 200 / 200 Intake: IV Fluids 1420 / 1420 120 / 120 1000 / 1000 D5% And 0.45% Nacl 1000 Ml Bag 1000 / 1000 1000 / 1000 1,000 ML @ 100 mls/hr IVC .Q10H DEE Rx#:[id number] Mefoxin 2,000 MG In Water for 20 / 20 20 / 20 inj. (sterile) 20 ML @ 300 mls/ hr IVP Q8H DEE Rx#:[id number] Ofirmev 1,000 mg/100 ml 1,000 300 / 300 100 / 100 mg In 100 ml @ 400 mls/hr IVPB Q6HR DEE Rx#:[id number] Doxycycline 100 MG In 0.9 % 100 / 100 Sodium Chloride (Mini-Bag +) 100 ML @ 100 mls/hr IVPB Q12H DEE Rx#:[id number] Oral 0 / 0 720 / 720 Output: Urine 0 / 0 900 / 900 800 / 800 Other: # Voids 1 Weight 62.8 kg Blood Glucose* 176 Patient Weight 04/16/18 23:59 Weight 62.8 kg - Labs 04/16/18 04:40 04/16/18 04:40 Diabetes panel 04/16/18 Range/Units 04:40 Sodium 137 (136-145) mEq/L Potassium 3.5 (3.5-5.1) mEq/L Chloride 106 (98-107) mEq/L Carbon Dioxide 23 (23-29) mEq/L BUN 5 L (6-20) mg/dL Creatinine 0.53 L (0.60-1.20) mg/dL Glucose 133 H (70-105) mg/dL Calcium 8.8 (8.6-10.3) mg/dL Calcium panel 04/16/18 Range/Units 04:40 Calcium 8.8 (8.6-10.3) mg/dL Pituitary panel 04/16/18 Range/Units 04:40 Sodium 137 (136-145) mEq/L Potassium 3.5 (3.5-5.1) mEq/L Chloride 106 (98-107) mEq/L Carbon Dioxide 23 (23-29) mEq/L BUN 5 L (6-20) mg/dL Creatinine 0.53 L (0.60-1.20) mg/dL Glucose 133 H (70-105) mg/dL Calcium 8.8 (8.6-10.3) mg/dL Adrenal panel 04/16/18 Range/Units 04:40 Sodium 137 (136-145) mEq/L Potassium 3.5 (3.5-5.1) mEq/L Chloride 106 (98-107) mEq/L Carbon Dioxide 23 (23-29) mEq/L BUN 5 L (6-20) mg/dL Creatinine 0.53 L (0.60-1.20) mg/dL Glucose 133 H (70-105) mg/dL Calcium 8.8 (8.6-10.3) mg/dL
--- NOTE | 2018-04-16 11:00 | General Surgery Progress Note ---
Date of Encounter: 04/16/18 Time of Encounter: 08:00 - Assessment and Plan (1) Small bowel obstruction Current Visit: Yes Status: Acute POD #5 midline laparotomy, appy, with LINNEA with Dr. Bowen 04/11/2018. Bowel function is improving, no issues with NG removed and clear diet. Plan: Advance diet to full liquids today Switch pain meds from SL to oral Continue supportive care and pain management Ambulate halls at least TID Out of bed to chair at least TID IV fluids Continue IV antibiotics with plan to transition to p.o. therapy Anxiolytic management per primary (2) DVT prophylaxis Current Visit: Yes Status: Acute EPCDs Heparin gtt Ambulation at least TID (3) Hypokalemia Current Visit: Yes Status: Acute Resolved, will follow (4) Anxiety Current Visit: Yes Status: Acute Managed as per primary team (5) IVDU (intravenous drug user) Current Visit: Yes Status: Chronic Will manage pain as above Objective Vital Signs - Last 8 Hours Temp Pulse Resp BP Pulse Ox 04/16/18 07:36 98.7 F 71 13 106/66 97 04/16/18 03:54 98.9 F 82 14 106/70 98 Intake and Output 04/15/18 04/16/18 04/16/18 23:59 07:59 15:59 Intake Total 1420 / 1420 840 / 840 1000 / 1000 Output Total 0 / 0 900 / 900 Balance 1420 / 1420 -60 / -60 1000 / 1000 Intake: IV Fluids 1420 / 1420 120 / 120 1000 / 1000 D5% And 0.45% Nacl 1000 Ml Bag 1000 / 1000 1000 / 1000 1,000 ML @ 100 mls/hr IVC .Q10H DEE Rx#:[id number] Mefoxin 2,000 MG In Water for 20 / 20 20 / 20 inj. (sterile) 20 ML @ 300 mls/ hr IVP Q8H DEE Rx#:[id number] Ofirmev 1,000 mg/100 ml 1,000 300 / 300 100 / 100 mg In 100 ml @ 400 mls/hr IVPB Q6HR DEE Rx#:[id number] Doxycycline 100 MG In 0.9 % 100 / 100 Sodium Chloride (Mini-Bag +) 100 ML @ 100 mls/hr IVPB Q12H DEE Rx#:[id number] Oral 0 / 0 720 / 720 Output: Urine 0 / 0 900 / 900 Other: # Voids 1 Weight 62.8 kg Blood Glucose* 176 Patient Weight 04/16/18 23:59 Weight 62.8 kg - Labs 04/16/18 04:40 04/16/18 04:40 Diabetes panel 04/16/18 Range/Units 04:40 Sodium 137 (136-145) mEq/L Potassium 3.5 (3.5-5.1) mEq/L Chloride 106 (98-107) mEq/L Carbon Dioxide 23 (23-29) mEq/L BUN 5 L (6-20) mg/dL Creatinine 0.53 L (0.60-1.20) mg/dL Glucose 133 H (70-105) mg/dL Calcium 8.8 (8.6-10.3) mg/dL Calcium panel 04/16/18 Range/Units 04:40 Calcium 8.8 (8.6-10.3) mg/dL Pituitary panel 04/16/18 Range/Units 04:40 Sodium 137 (136-145) mEq/L Potassium 3.5 (3.5-5.1) mEq/L Chloride 106 (98-107) mEq/L Carbon Dioxide 23 (23-29) mEq/L BUN 5 L (6-20) mg/dL Creatinine 0.53 L (0.60-1.20) mg/dL Glucose 133 H (70-105) mg/dL Calcium 8.8 (8.6-10.3) mg/dL Adrenal panel 04/16/18 Range/Units 04:40 Sodium 137 (136-145) mEq/L Potassium 3.5 (3.5-5.1) mEq/L Chloride 106 (98-107) mEq/L Carbon Dioxide 23 (23-29) mEq/L BUN 5 L (6-20) mg/dL Creatinine 0.53 L (0.60-1.20) mg/dL Glucose 133 H (70-105) mg/dL Calcium 8.8 (8.6-10.3) mg/dL - VTE Documentation of Mechanical Device: Intermittent pneumatic compression device Consult Discharge Plan - Plan Referrals: NONE,PCP [Primary Care Provider] -
[2018-04-16] MEDS ORDERED: *HR* OxyCODONE/APAP 5/325 TABLET PO PRN (12:00)
[2018-04-16] MEDS ORDERED: *HR* OxyCODONE/APAP 7.5/325 TABLET PO PRN (12:00)
[2018-04-16] MEDS: Acetaminophen 325 MG TABLET PO SCH ×2 (12:44→17:13)
[2018-04-16] MEDS ORDERED: D5% in 0.45% NACL 1,000 ML IVC SCH (17:23)
[2018-04-17] MEDS: Ketorolac 15 MG/ML VIAL IVP SCH ×3 (00:39→13:14)
[2018-04-17] MEDS: Metoclopramide 10 MG/2 ML VIAL IVP SCH ×3 (00:39→13:14)
[2018-04-17] MEDS: Acetaminophen 325 MG TABLET PO SCH ×3 (00:40→13:13)
[2018-04-17] MEDS: cefOXitin 2,000 MG in Water for inj. (sterile) 20 ML 20 ML IVP SCH ×2 (01:47→09:39)
[2018-04-17] MEDS: *HR* LORazepam 2 MG/ML VIAL IVP PRN ×3 (01:48→10:02)
--- NOTE | 2018-04-17 07:55 | Internal Med Progress Note ---
Hospitalist Progress Note - Encounter Date of Encounter: 04/17/18 Time of Encounter: 07:51 - Subjective Interval History: Sherwin Agrawal is a 23 yo F with a PMHx of anxiety, IVDU, substance abuse of methamphetamine, cocaine and opiates. Pt presented to the ED c/o abd pain and had been admitted for a SBO and appendectomy. Pt had an uncomplicated laproscopic appendectomy with lysis of adhesions on 04/11/18. Pt is awake and alert and smiling in bed. She states that she is feeling much better today and was able to have 3 BMs yesterday that were brown, soft and loose and did not have any melena or hematochezia. She says that she has been able to tolerate the all liquid diet well and is requesting trial of solid foods. The pt reports that her pain is significantly improved and would like to go home if she is able to tolerate solid foods. POD#6: She states that she is not having any abd pain, fever or any other symptoms this morning. - Exam Vitals: Temp Pulse Resp BP Pulse Ox 97.5 F L 72 14 118/82 100 04/17/18 07:26 04/17/18 07:26 04/17/18 07:26 04/17/18 07:26 04/17/18 07:26 Exam: GEN: A&O x 3, NAD ENT: moist mucus membranes, no conjunctival pallor HEART: RRR, normal S1 and S2 LUNGS: CTAB in all [place], no wheezes, rhonchi, or crackles ABD: abd non-tender, soft, non-distended, no masses, nl active bowel sounds, incision closed with noe and incision is clean, dry and intact without signs of infection or dehiscence. NEURO: strength 5/5 in all extremities PSYCH: answering questions appropriately, pleasant and cooperative with exam - Assessment and Plan (1) IVDU (intravenous drug user) Current Visit: Yes Status: Chronic (2) Small bowel obstruction Current Visit: Yes Status: Acute Assessment and Plan: POD#6 S/P EX LAP WITH APPENDECTOMY. NG removed yesterda. Pt had 3 BMs yesterday , will advance diet per surgery recommendations. Plan: - surgery following, discontinued NG tube and pt on Reglan and Colace. Will contine pt on Doxycycline and surgery started Cefoxitin as well today for presumed PID. Surgery has cleared the pt for discharge home this afternoon and advanced to soft diet. Recommends continued abx for 12 more days and to f/u with Dr. Bowen in 2 weeks. - Pt has tolerated all liquid diet, will advance diet and reassess pt. - Pain: Pt's pain has improved and being managed with Tylenol, Toradol, Oxycodone PRN and Ativan for her anxiety PRN. - Nausea: Pt reports nausea has resolved, pt has PRN Zofran. - D5/NS has been discontinued this morning. DVT Prophylaxis: Subq heparin - Time Spent with Patient Total time spent is greater than 50% in coordination of care (as documented) at patient's floor/unit and/or counseling patient: Internal Medicine: Result - Labs CBC & Chem 7: 04/16/18 04:40 04/16/18 04:40 - ABG Interpretation ABG results: PT/INR, D-dimer PT 11.0 Seconds (9.4-12.1) 04/11/18 06:00 - VTE Documentation of Mechanical Device: Intermittent pneumatic compression device Consult Discharge Plan - Plan Instructions: Pelvic Inflammatory Disease (DC), Laparoscopic Appendectomy (DC) Additional Instructions: General Surgical Discharge Instructions 1. No pushing, pulling, or lifting greater than 15 lbs for 2-4 weeks (depending upon procedure). 2. You may shower beginning today, but no tub baths, soaking, or swimming for 2 weeks. 3. You may resume driving when you are off narcotics and are safe to react in a car. 4. Take ibuprofen every 8 hours for discomfort. If this does not relieve discomfort, you may take the as needed Percocet. Take narcotics as directed. Do not take more narcotics then directed and do not share your narcotics with any other person. Do not drink alcohol while on narcotics. 5. Take stool softeners (Colace) or a water based laxative (Miralax) while taking narcotics. You may hold for loose stools. 6. Report any fevers greater than 100.5F, increase abdominal discomfort, drainage that looks like pus, increased redness or pain at the surgical site, or any vomiting. 7. Report any pain in the calves, shortness of breath, or rapid heartbeat. 8. Follow-up in the office as directed. 9. If you were prescribed antibiotics, do not stop them without talking to your provider. Take your antibiotics as directed. Do not stop the antibiotics. Do not have sexual intercourse oral sex, or anal sex until scene and follow-up by your OB/ [employer]. Referrals: [facility] [facility] [place] [Provider Group] (1-2 week) Christopher Bowen MD [Emergency Provider] - 04/30/18 2:00 pm NONE,PCP [Primary Care Provider] -
--- NOTE | 2018-04-17 09:33 | General Surgery Progress Note ---
Date of Encounter: 04/17/18 Time of Encounter: 09:33 - Assessment and Plan (1) Small bowel obstruction Current Visit: Yes Status: Acute Date of procedure: 04/11/18 Pre-op diagnosis: small bowel obstruction Post-op diagnosis: same Procedure: 1) exploratory laparotomy, 2) lysis of adhesions, 3) appendectomy Implants: none Complications: none Anesthesia: ROLANDOA Surgeon: Christopher Bowen POD #6 as above. Significant improvement over the last 48 hours. She smiles, makes eye contact, and is showered. she reports an appetite. Abdominal exam is grossly as expected. Final pathology: A. Appendix; appendectomy: Benign vermiform appendix with thickened edematous serosa showing extensive vascular congestion and scattered inflammatory cells No evidence of acute appendicitis and malignancy Negative for endometriosis B. Small bowel adhesive tissue biopsy: Pieces of benign hemorrhagic highly vascular fibrous connective tissue with areas of myxoid degeneration and proliferation of reactive fibroblasts. No evidence of endometriosis and malignancy Plan: -okay to discharge this afternoon from a surgical perspective. We have advance her diet to a soft diet. She is recommended to follow a soft diet as an outpatient until scene and follow-up. -Reviewed with internal medicine resident who will provide discharge medications (pain and antibiotics); we appreciate your assistance. She is recommended to continue a 12 day course of PID antibiotics. She is also recommended to follow-up with her [facility] [employer] [facility] within one week. -Follow-up in the office with the Dr. Bowen in approximately 2 weeks. (2) Pelvic inflammatory disease (PID) Current Visit: Yes Status: Acute Concern for PID given the nature of scar tissue in a virgin abdomen, high-risk behaviors, and non-improvement shortly after surgery. IV ATBX were initiated and patient noted significant improvement over the last 48 hours. She will continue PO antibiotics and follow-up with [facility] [employer] [facility] within one week. (3) DVT prophylaxis Current Visit: Yes Status: Acute EPCDs Heparin gtt (4) IVDU (intravenous drug user) Current Visit: Yes Status: Chronic See above Subjective Patient reports: no new complaints, feels better, pain is less, voiding w/o difficulty, flatus, bowel movement, afebrile Objective Vital Signs - Last 8 Hours Temp Pulse Resp BP Pulse Ox 04/17/18 07:26 97.5 F L 72 14 118/82 100 04/17/18 04:00 98.1 F 93 16 100/65 98 Intake and Output 04/16/18 04/17/18 04/17/18 23:59 07:59 15:59 Intake Total 240 / 240 1400 / 1400 Output Total 1000 / 1000 0 / 0 Balance -760 / -760 1400 / 1400 Intake: IV Fluids 240 / 240 920 / 920 Mefoxin 2,000 MG In Water for 40 / 40 20 / 20 inj. (sterile) 20 ML @ 300 mls/ hr IVP Q8H DEE Rx#:[id number] Doxycycline 100 MG In 0.9 % 200 / 200 Sodium Chloride (Mini-Bag +) 100 ML @ 100 mls/hr IVPB Q12H DEE Rx#:[id number] Oral 0 / 0 480 / 480 Output: Urine 1000 / 1000 0 / 0 Other: # Voids 2 # Bowel Movements 0 Weight 62.8 kg Patient Weight 04/17/18 23:59 Weight 62.8 kg VITAL SIGNS: Reviewed. See [facility] GENERAL: In no apparent distress. Pleasant. Smiles and makes eye contact today. HEENT: Normocephalic, atraumatic, pupils are equal and reactive, extraocular motions intact, oropharynx is pink and moist, there is no neck adenopathy or JVD noted. CHEST/RESPIRATORY: The thorax is free from signs of trauma. Lung sounds: clear to auscultation, normal respiratory effort CARDIAC: Regular rate and rhythm. Normal S1 and S2, without murmurs, gallops, or rubs. VASCULAR: No Edema. 2+ peripheral pulses. ABDOMEN: soft, tender as expected, active bowel sounds INCISION: Surgical incision is clean, dry, and intact. There are no signs of cellulitis or infection noted. MUSCULOSKELETAL: Good range of motion of all major joints. Extremities without clubbing, cyanosis or edema. NEUROLOGIC EXAM: Alert and oriented x 3. Speech normal. Follows commands. PSYCHIATRIC: Mood normal. SKIN: No rash or lesions. - Labs 04/16/18 04:40 04/16/18 04:40 - VTE Documentation of Mechanical Device: Intermittent pneumatic compression device Consult Discharge Plan - Plan Instructions: Pelvic Inflammatory Disease (DC), Laparoscopic Appendectomy (DC) Additional Instructions: General Surgical Discharge Instructions 1. No pushing, pulling, or lifting greater than 15 lbs for 2-4 weeks (depending upon procedure). 2. You may shower beginning today, but no tub baths, soaking, or swimming for 2 weeks. 3. You may resume driving when you are off narcotics and are safe to react in a car. 4. Take ibuprofen every 8 hours for discomfort. If this does not relieve discomfort, you may take the as needed Percocet. Take narcotics as directed. Do not take more narcotics then directed and do not share your narcotics with any other person. Do not drink alcohol while on narcotics. 5. Take stool softeners (Colace) or a water based laxative (Miralax) while taking narcotics. You may hold for loose stools. 6. Report any fevers greater than 100.5F, increase abdominal discomfort, drainage that looks like pus, increased redness or pain at the surgical site, or any vomiting. 7. Report any pain in the calves, shortness of breath, or rapid heartbeat. 8. Follow-up in the office as directed. 9. If you were prescribed antibiotics, do not stop them without talking to your provider. Take your antibiotics as directed. Do not stop the antibiotics. Do not have sexual intercourse oral sex, or anal sex until scene and follow-up by your OB/ [employer]. Referrals: Christopher Bowen MD [Emergency Provider] - 04/30/18 2:00 pm NONE,PCP [Primary Care Provider] - [facility] [employer] [facility] [place] [Provider Group] (1-2 week)
[2018-04-17] MEDS: Nicotine 14 MG PATCH.TD24 TD SCH (09:39)
[2018-04-17] MEDS: *HR* Heparin 5,000 UNIT/ML VIAL SQ SCH (09:40)
[2018-04-17] MEDS: Doxycycline 100 MG in 0.9 % Sodium Chloride Mini Bag 100 ML IVPB SCH (10:02)
[2018-04-17 10:52] VITALS: BP 140/90
--- NOTE | 2018-04-17 12:21 | Discharge Summary ---
<Rafia Hernandez - Last Filed: 04/17/18 13:45> Date of Encounter: 04/17/18 Time of Encounter: 10:18 - Discharge Diagnosis (1) Small bowel obstruction Priority: Primary Status: Acute (2) Anxiety Priority: Secondary Status: Acute (3) IVDU (intravenous drug user) Priority: Secondary Status: Chronic (4) Hypokalemia Priority: Secondary Status: Acute (5) DVT prophylaxis Priority: Secondary Status: Acute (6) Pelvic inflammatory disease (PID) Priority: Secondary Status: Acute Hospital course: Ms. Agrawal is a 23 year old female with a pmh of anxiety, IVDU, substance abuse of methamphetamine, cocaine and opiates, and hepatitis C who presented to the ED c/o abd pain. CT abdomen showed a small-bowel obstruction with transition point in the mid abdomen and ascites. NG tube was placed in the ED and pt was started on aggressive IV hydration and admitted the pt for SBO. Decision was made for an exploratory laparotomy and was found to have multiple adhesions and underwent appendectomy with lysis of adhesions on 04/11/18.There was a difficulty managing the pts pain secondary to h/o IVDU and pt was placed on Dilaudid LEAD CARPENTER with PRN Ativan for anxiety. Surgery removed NG tube on POD#4 and discontinued LEAD CARPENTER and transitioned pt to full liquid diet and oral pain medications. She was started on Doxycycline for presumed PID on 04/16/18. Patient's pain improved greatly after having multiple bowel movements. Patient tolerated advancing diet and pain has improved. Pt is feeling better with stable vitals. She was discharged home with Doxycycline and Flagyl for 12 days and tylenol, motrin, and percocet. She was instructed to go to f/u appointment with surgery in 2 weeks, OBGYN in a couple of weeks, and PCP within the next 7 days. Discharge discussed with: patient - Time Spent with Patient Total time spent providing and/or coordinating discharge services: - Discharge Medications Prescriptions: Acetaminophen [Tylenol] 650 mg PO Q6HR PRN #12 tablet PRN Reason: Pain Ondansetron [Zofran] 4 mg SL Q6HR PRN #10 vial PRN Reason: Nausea And Vomiting OxyCODONE/APAP 5/325 [Percocet 5/325 MG] 1 each PO Q8HR PRN 7 Days #21 tablet PRN Reason: Pain Doxycycline 100 mg PO BID #24 capsule Ibuprofen 400 mg PO Q6H #12 tablet metroNIDAZOLE [Flagyl] 500 mg PO BID #24 tablet Home Medications: Acetaminophen [Tylenol] 650 mg PO Q6HR PRN #12 tablet 04/17/18 [Rx] Doxycycline 100 mg PO BID #24 capsule 04/17/18 [Rx] Ibuprofen 400 mg PO Q6H #12 tablet 04/17/18 [Rx] Ondansetron [Zofran] 4 mg SL Q6HR PRN #10 vial 04/17/18 [Rx] OxyCODONE/APAP 5/325 [Percocet 5/325 MG] 1 each PO Q8HR PRN 7 Days #21 tablet [Rx] metroNIDAZOLE [Flagyl] 500 mg PO BID #24 tablet 04/17/18 [Rx] Allergies/Adverse Reactions: 3 Allergy/AdvReac Type Severity Reaction Status Date / Time No Known Allergies Allergy Verified 04/10/18 21:15 Date of admission: 04/12/18 13:44 Primary care physician: PCP NONE Consults: 04/13/18 18:37 Consult to Invasive Line Access Team [CONS] Routine Reason for Consult: need IV access Line Type: EPIV 04/15/18 10:42 Consult to Invasive Line Access Team [CONS] Routine Reason for Consult: Limited IV access. H/O IVDU Line Type: Midline Discharging clinician: Jairo Kessler Anticipated date of discharge: 04/17/18 - Constitutional Vitals: Temp Pulse Resp BP Pulse Ox 97.9 F 109 14 140/90 96 04/17/18 10:49 04/17/18 10:49 04/17/18 10:49 04/17/18 10:49 04/17/18 10:49 General appearance: Present: mild distress, A&O X 3. Absent: cooperative, pleasant, answers questions appropriately (non-cooperative) Exam: GEN: no acute distress, walking around the room ENT: moist mucus membranes, no conjunctival pallor HEART: RRR, normal S1 and S2 LUNGS: CTAB in all seymour, no wheezes, rhonchi, or crackles ABD: abd non-tender, soft, non-distended, no masses, nl active bowel sounds, vertical abdominal incision with noe, dry and intact without signs of infection or dehiscence. NEURO: strength 5/5 in all extremities PSYCH: answering questions appropriately, pleasant and cooperative with exam - Patient Status Disposition: Home, Self-Care Condition: Fair Functional capacity at discharge: independent ambulation Overall status at discharge: patient is progressing back to baseline - Discharge Instructions Instructions: Pelvic Inflammatory Disease (DC), Laparoscopic Appendectomy (DC) Follow Up With: [facility] [Provider Group] (1-2 week) Christopher Bowen MD [Emergency Provider] - 04/30/18 2:00 pm NONE,PCP [Primary Care Provider] - [facility] [Outside] Forms: ED Satisfaction Letter, Work/School Release Additional Instructions: General Surgical Discharge Instructions 1. No pushing, pulling, or lifting greater than 15 lbs for 2-4 weeks (depending upon procedure). 2. You may shower beginning today, but no tub baths, soaking, or swimming for 2 weeks. 3. You may resume driving when you are off narcotics and are safe to react in a car. 4. Take ibuprofen every 8 hours for discomfort. If this does not relieve discomfort, you may take the as needed Percocet. Take narcotics as directed. Do not take more narcotics then directed and do not share your narcotics with any other person. Do not drink alcohol while on narcotics. 5. Take stool softeners (Colace) or a water based laxative (Miralax) while taking narcotics. You may hold for loose stools. 6. Report any fevers greater than 100.5F, increase abdominal discomfort, drainage that looks like pus, increased redness or pain at the surgical site, or any vomiting. 7. Report any pain in the calves, shortness of breath, or rapid heartbeat. 8. Follow-up in the office as directed. 9. If you were prescribed antibiotics, do not stop them without talking to your provider. Take your antibiotics as directed. Do not stop the antibiotics. Do not have sexual intercourse oral sex, or anal sex until scene and follow-up by your OB/ SP[facility]TS [facility]NCER. Please follow-up with a primary care physician within 1 week of discharge. - Diet and Activity Activity: increase activity as tolerated Diet: advance to your usual diet - VTE Documentation of Mechanical Device: Intermittent pneumatic compression device <Jairo Kessler - Last Filed: 04/17/18 15:01> Date of Encounter: 04/17/18 - Discharge Diagnosis (1) Abdominal distension Status: Acute (2) IVDU (intravenous drug user) Status: Chronic (3) DVT prophylaxis Status: Acute Hospital course: Ms. Agrawal is a 23 year old female - Time Spent with Patient Total time spent providing and/or coordinating discharge services: Date of admission: 04/12/18 13:44 Primary care physician: PCP NONE Consults: 04/13/18 18:37 Consult to Invasive Line Access Team [CONS] Routine Reason for Consult: need IV access Line Type: EPIV 04/15/18 10:42 Consult to Invasive Line Access Team [CONS] Routine Reason for Consult: Limited IV access. H/O IVDU Line Type: Midline - Constitutional Vitals: Temp Pulse Resp BP Pulse Ox 97.9 F 109 14 140/90 96 04/17/18 10:49 04/17/18 10:49 04/17/18 10:49 04/17/18 10:49 04/17/18 10:49 - Attending Attestation I have seen and examined this pt independently. I have discussed with resident physician Dr. Hernandez regarding the management plan. Agree with the documentation.
== END 2018-04-17 15:35 | disposition home or self-care (01) | DRG 224 ==
LOC: 3ANU 20:05 → EMEROOARM 20:05 → 3ANU 04-11 00:42 → SUATTDRO 04-12 13:44
PROVIDERS: ADMIT Pediatrics; ATTEND Internal Medicine

== ENCOUNTER 2021-03-07 00:57 | Inpatient (IN) ==
[~2021-03-07 00:57] MED LIST: *HR* FentaNYL (PF) 100 MCG/2 ML VIAL IVP PRN; *HR* Nalbuphine 10 MG/ML AMPUL IV PRN; Azithromycin 500 MG in 0.9 % Sodium Chloride 250 ML IVPB PRN; Famotidine 20 MG/2 ML VIAL IVP PRN; Lidocaine 1% 20 ML MDV INFILT PRN; Metoclopramide 10 MG/2 ML VIAL IVP PRN; Naloxone 0.4 MG/ML INJ IVP PRN; Penicillin G Potassium 5,000,000 UNIT in 0.9 % Sodium Chloride Mini Bag 100 ML IVPB ONE
[2021-03-07] MEDS ORDERED: Ringers Solution, Lactated 1,000 ML IVC SCH (01:00)
[2021-03-07] MEDS ORDERED: Oxytocin 20 units/ LR 1000 mL 20 UNIT/1,000 ML BAG IVC SCH ×2 (01:15→18:02)
[2021-03-07] MEDS: Ondansetron 4 MG/2 ML VIAL IVP PRN ×2 (02:47→11:42)
[2021-03-07] MEDS ORDERED: EPHEDrine 50 MG/ML VIAL IVP PRN (03:10)
[2021-03-07] MEDS ORDERED: Epidural Premix (fent/bupiv) 110 ML EP SCH (03:15)
[2021-03-07] MEDS ORDERED: *HR* FentaNYL (PF) 100 MCG/2 ML VIAL ONE (03:31)
[2021-03-07] MEDS ORDERED: Ropivacaine/PF 0.2% 20 ML VIAL ONE (03:31)
[2021-03-07 03:37] LABS: Basophils % 0.2 %; Eosinophils % 0.1 %; Hematocrit 38.8 % (35.3-44.9); Hemoglobin 12.8 g/dL (11.5-15.4); Immature Granulocytes % 0.7 % (0-4); Lymphocytes % 11.4 %; Mean Corpuscular Hemoglobin 32.5 pg (28.0-33.3); Mean Corpuscular Volume 98.5 fL (83.0-100.0); Mean Platelet Volume 10.2 fL (9.4-12.4); Monocytes % 5.5 %; Neutrophils # 14.5 K/mcL (1.6-8.9); Platelet Count 270 K/mcL (140-400); Red Blood Count 3.94 M/mcL (3.82-4.97); Red Cell Distribution Width 13.3 % (11.5-14.5); Segmented Neutrophils % 82.1 %; White Blood Count 17.7 K/mcL (4.3-11.1)
[2021-03-07 03:47] LABS: Protein/Creatinine Ratio,Urine 0.17 mg/mg (0.00-0.20)
[2021-03-07 03:49] LABS: Amphetamine Screen,Urine Negative ng/mL (Cutoff=1000); Barbiturate Screen,Urine Negative ng/mL (Cutoff=200); Benzodiazepines Screen,Urine Negative ng/mL (Cutoff=200); Cannabinoid Screen,Urine Positive ng/mL (Cutoff = 50); Cocaine Screen,Urine Negative ng/mL (Cutoff= 300); Opiate Screen,Urine Negative ng/mL (Cutoff=300); Phencyclidine Screen,Urine Negative ng/mL (Cutoff=25)
[2021-03-07 04:07] LABS: Alanine Aminotransferase 52 Units/L (7-52); Aspartate Amino Transferase 32 Units/L (13-39); BUN/Creatinine Ratio 17 (6-26); Blood Urea Nitrogen 10 mg/dL (6-20); Glucose 99 mg/dL (70-105); Lactate Dehydrogenase 185 Units/L (140-271); Uric Acid 5.9 mg/dL (2.3-7.6); eGFR For African Americans > 60 (> 60); eGFR For Non-African Americans > 60 (> 60)
[2021-03-07] MEDS: Penicillin G Potassium 2,500,000 UNIT/105 ML MLS IVPB SCH ×3 (06:51→15:05)
[2021-03-07] MEDS ORDERED: Measles/Mumps/Rubella Vacc 0.5 ML VIAL SQ PRN (18:02)
[2021-03-07] MEDS ORDERED: Rho Immune Globulin 1,500 UNIT SYRINGE IM PRN (18:02)
[2021-03-07] MEDS ORDERED: Benzocaine/Menthol 56 GM AEROSOL SPRAY TP PRN (18:02)
[2021-03-07] MEDS: Acetaminophen 325 MG TABLET PO PRN (18:15)
[2021-03-07] MEDS ORDERED: Ringers Solution, Lactated 1,000 ML ONE (18:53)
[2021-03-08] MEDS: Acetaminophen 325 MG TABLET PO PRN ×2 (00:45→07:44)
[2021-03-08 05:37] VITALS: O2SAT 100
[2021-03-08 05:45] LABS: Basophils % 0.2 %; Eosinophils # 0.1 K/mcL (0.0-0.6); Eosinophils % 0.4 %; Immature Granulocytes % 0.6 % (0-4); Lymphocytes # 2.5 K/mcL (0.6-4.6); Lymphocytes % 21.2 %; Mean Corpuscular HGB Conc 34.5 g/dL (31.6-35.5); Mean Corpuscular Hemoglobin 33.3 pg (28.0-33.3); Mean Corpuscular Volume 96.7 fL (83.0-100.0); Mean Platelet Volume 9.9 fL (9.4-12.4); Monocytes # 0.8 K/mcL (0.0-1.3); Monocytes % 7.3 %; Neutrophils # 8.1 K/mcL (1.6-8.9); Platelet Count 273 K/mcL (140-400); Red Cell Distribution Width 13.4 % (11.5-14.5); Segmented Neutrophils % 70.3 %; White Blood Count 11.5 K/mcL (4.3-11.1)
[2021-03-08 07:44] VITALS: BP 108/64; PULSE 77; TEMP 97.7
[2021-03-08] MEDS ORDERED: Prenatal Vit/FA 1 EACH TABLET PO SCH (09:00)
== END 2021-03-08 12:00 | disposition home or self-care (01) | DRG 560 ==
LOC: 1NENULAB → 1NENUOBS 20:11
PROVIDERS: ADMIT Advanced Practice Midwife; ATTEND Advanced Practice Midwife